=== PATIENT | male | born 1990 | race Caucasian/White ===

== ENCOUNTER → 2020-06-24 06:48 | Outpatient (BNVA) | payer MEDICAID, SELFPAY | PROVIDERS: Visit Provider Surgery | DX: Z76.89 Persons encountering health services in other specified circumstances (principal) ==

== ENCOUNTER → 2020-08-01 08:13 | Outpatient (BNVA) | payer MEDICAID, SELFPAY | PROVIDERS: PCP Internal Medicine; Visit Provider Surgery | DX: Z76.89 Persons encountering health services in other specified circumstances (principal) ==

== ENCOUNTER 2021-12-02 12:10 | Outpatient (REF) | payer OTHER, SELFPAY ==
--- NOTE | ~2021-12-02 | XR_ITS ---
EXAMINATION: XR SHOULDER, RIGHT CLINICAL INFORMATION: Pain right shoulder. COMPARISON: None TECHNIQUE: AP external rotation, Grashey, scapular Y, and axillary views of the right shoulder. FINDINGS: The bones and soft tissues are normal. No fracture. Glenohumeral and acromioclavicular alignment is anatomic with normal joint space. No abnormal soft tissue calcifications. XR/XR shoulder RT min 2V IMPRESSION: Unremarkable right shoulder.
== END 2021-12-02 12:11 | disposition home or self-care (01) ==
LOC: HO.XRAY 12:10
PROVIDERS: Absent Provider Internal Medicine; PCP Internal Medicine; Visit Provider Family Medicine
DX: M25.511 Pain in right shoulder (principal)
CPT/HCPCS: 73030

== ENCOUNTER 2023-10-06 13:27 | Outpatient (REF) | payer MEDICAID, SELFPAY ==
[2023-10-06 17:19] LABS: Estimated Glomerular Filt Rate > 60
[2023-10-07 03:35] LABS: Syphilis Screen Nonreactive (Nonreactive)
[2023-10-07 04:07] LABS: HBS Num1 5.21 mIU/mL (0-7.99); ~Hepatitis B Surface Antibody NONREACTIVE (Nonreactive); ~Hepatitis C Antibody Nonreactive (Nonreactive)
[2023-10-14 10:20] LABS: HIV RNA PCR Qn Copies NOT DETECTED
[2023-10-14 10:21] LABS: HIV RNA PCR Qn Log Copies NOT CALCULATED
== END 2023-10-06 13:28 | disposition home or self-care (01) ==
LOC: HO.HHCL 13:27
PROVIDERS: Visit Provider Internal Medicine
DX: Z11.4 Encounter for screening for human immunodeficiency virus [HIV] (principal); Z11.3 Encounter for screening for infections with a predominantly sexual mode of transmission
CPT/HCPCS: 36415; 82565; 86706; 86780; 86803; 87536

== ENCOUNTER 2023-10-12 13:04 | Outpatient (REF) | payer MEDICAID, SELFPAY | END 2023-10-12 13:05 | disposition home or self-care (01) | LOC: HO.HHCL 13:04 | PROVIDERS: Visit Provider Internal Medicine | DX: Z13.89 Encounter for screening for other disorder (principal) | CPT/HCPCS: 36415; 87536 ==

== ENCOUNTER 2023-10-26 13:26 | Outpatient (REF) | payer MEDICAID, SELFPAY | END 2023-10-26 13:27 | disposition home or self-care (01) | LOC: HO.CHCLNP 13:26 | PROVIDERS: Visit Provider Internal Medicine | DX: Z13.89 Encounter for screening for other disorder (principal) | CPT/HCPCS: 87491; 87591 ==

== ENCOUNTER 2024-11-23 11:41 | Outpatient (REF) | payer MEDICAID, SELFPAY ==
--- OUTSIDE RECORDS SUMMARY | 2024-11-23 13:38 | XMS_ITS | Encounter Summary ---
Author Organization [employer] Address [address] [place] [address] 7 [place] [address] Care Team Providers Care Eyelet Operator Name Role Phone Alejandrina Lentz MD Primary Care Provider [phone]- [phone] Blanco Escobar PharmD Unavailable Unavail able Reason for Visit * Reason Comments Weight Check Hypertension Diabetes Encounter Details Date Type Department Care Team ([facility] Contact Info) Description 11/21/2024 4:00 PM EST Office Visit [facility] MED & PEDS [address] [place] [address] Alejandrina Lentz MD [address] [place] [address] Type 2 diabetes mellitus without complication, without long-term current use of insulin ([facility]) (Primary Dx); Primary hypertension; Encounter for immunization; Dietary counseling; Exercise counseling; Class 3 severe obesity due to excess calories with serious comorbidity and body mass index (BMI) of 40.0 to 44.9 in adult (CMS/HCC) Social History Tobacco Use Types Packs/Day Years Used Date Smoking Tobacco: Never Passive Smoke Exposure: Never Smokeless Tobacco: Never Depression Answer Date Recorded Patient Health Questionnaire-9 Score 4 11/21/2024 Patient Health Questionnaire-9 Score 4 11/21/2024 Last PHQ-9: Questionnaire Data Not on file 0 11/21/2024 Housing Stability Answer Date Recorded What is your housing situation today? I have bel marlow 11/21/[address] you li ve. Do you have problems with any of the following? None of the above 11/21/2024 Food Insecurity Answer Date Recorded Within the past 12 months, y ou worried that your food would run out before you got money to buy more: Never True 11/21/2024 Within the past 12 months,th e food you bought just didn't last and you didn't have enough money to get more: Never True 01/2025 Transportation Answer Date Recorded In the past 12 months, has l ack of transportation kept you from medical appts, meetings, work or from getting things needed for daily living? No 11/21/2024 Utilities Answer Date Recorded In the past 12 months, has t he electric, gas, oil or water company threatened to shut off services in your home? No 11/21/2024 Depression Answer Date Recorded Patient Health Questionnaire-2 Score 2 11/21/2024 Internet Access Answer Date Recorded Internet Access Q1 Yes 11/21/2024 Internet Access Q2 Not on file 11/21/2024 Sex and Gender Information Value Date Recorded Sex Assigned at Male 07/19/2022 10:14 AM EDT Legal Sex Male 10:14 AM EDT Gender Identity Male 07/19/2022 10:14 AM EDT Sexual Orientation Straight 07/19/2022 10 :14 AM EDT documented as of this encounter Last Filed Vital Signs Vital Sign Reading Time Taken Comments Blood Pressure 137/89 11/21/2024 3:48 PM EST Pulse 86 11/21/2024 3:48 PM EST Temperature 36.7 ??C (98 ??F) 11/21/2024 3:48 PM EST Respiratory Rate 20 11/21/2024 3:48 PM EST Oxygen Saturation 97% 11/21/2024 3:48 PM EST Inhaled Oxygen Concentration - - Weight 116 kg (256 lb) 11/21/2024 3:48 PM EST Height 167.6 cm (5' 6 ) 11/21/2024 3:48 PM EST Body Mass Index 41.32 11/21/2024 3:48 PM EST documented in this encounter Progress Notes * Alejandrina eLntz MD - 11/21/2024 4:00 PM EST Subjective Patient ID: Oneal Galindo is a 34 y.o. male who presents for Weight Check, Hypertension, and Diabetes. Hypertension This is a chronic problem. The problem is controlled. Pertinent negatives include no anxiety, blurred vision, chest pain, headaches, malaise/fatigue, neck pain, orthopnea, palpitations, peripheral edema, PND, shortness of breath or sweats. Diabetes He presents for his follow-up diabetic visit. He has type 2 diabetes mellitus. Pertinent negatives for hypoglycemia include no confusion, dizziness, headaches, hunger, mood changes, nervousness/anxiousness, pallor, seizures, sleepiness, speech difficulty, sweats or tremors. Pertinent negatives for diabetes include no blurred vision, no chest pain, no fatigue, no foot paresthesias, no foot ulcerations, no polydipsia, no polyphagia, no polyuria, no visual change, no weakness and no weight loss. Pt is doing overall well. Denies any acute event since his last office visit. He is compliant to his meds. He has made some lifestyle changes. Has stopped drinking sodas and eats less candies. Patient Active Problem List Diagnosis Primary hypertension Type 2 diabetes mellitus without complication, without long-term current use of insulin ([facility]) Current Outpatient Medications on File Prior to Visit Medication Sig Dispense Refill acetaminophen (Tylenol) 325 MG tablet Take 1 tablet by mouth every 4 (four) hours if needed. OTC Alcohol Swabs (Alcohol Prep) pads Use to check blood sugar twice daily 100 each 11 Blood Glucose Monitoring Suppl (Reply.ioStyle [place] Lite) w/Device kit TEST BLOOD SUGAR TWICE DAILY Blood Pressure Monitor kit Use to check blood pressure daily 1 kit 0 buPROPion XL (Wellbutrin XL) 300 MG 24 hr tablet Take 300 mg by mouth in the morning. Do not crush,chew, or split. Descovy 200-25 MG tablet TAKE TABLET EVERY MORNING 30 tablet 2 Descovy 200-25 MG tablet TAKE ONE TABLET EVERY DAY 30 tablet 1 doxycycline (Vibra-Tabs) 100 MG tablet Take 2 tabs within 72 hours after unprotected intercourse. Take with a full glass of water and do not lie down for at least 30 minutes after. 60 tablet 0 emtricitabine-tenofovir AF (Descovy) 200-25 MG tablet Take 1 tablet by mouth in the morning. 30 tablet 2 emtricitabine-tenofovir AF (Descovy) 200-25 MG tablet Take 1 tablet by mouth Once per day. 30 tablet 2 FREESTYLE LITE test strip TEST BLOOD SUGAR TWICE DAILY 100 strip 11 Jardiance 10 MG TAKE ONE TABLET EVERY MORNING 90 tablet 0 Jardiance 25 MG TAKE ONE TABLET EVERY MORNING 90 tablet 1 ketoconazole (NIZOral) 2 % shampoo USE TWICE A WEEK DIRECTED 120 mL 3 Lancets (OneTouch Delica Plus [id number]) [facility] [place] BLOOD SUGAR TWICE DAILY 100 each 11 lisinopril 20 MG tablet TAKE ONE TABLET BY MOUTH EVERY MORNING 30 tablet 11 metFORMIN XR (Glucophage-XR) 500 MG 24 hr tablet TAKE TWO TABLETS TWICE DAILY IN THE MORNING AND EVENING WITH MEALS 120 tablet 11 polyethylene glycol, PEG, 3350 (Miralax) 17 g packet MIX ONE PACKAGE IN 8 OUNCE OF WATER, JUICE, COFFEE OR TEA AND DRINK TWICE DAILY 60 packet 3 propranolol LA (Inderal LA) 60 MG 24 hr capsule Take 1 capsule by mouth in the evening. traZODone (Desyrel) 50 MG tablet Take 0.5-1 tablets by mouth if needed at bedtime. venlafaxine XR (Effexor XR) 75 MG 24 hr capsule Take 1 capsule by mouth in the evening. [DISCONTINUED] dulaglutide (Trulicity) 1.5 MG/0.5ML solution pen-injector Inject 1.5 mg under the skin 1 (one) time per week. 4 each 11 Current Facility-Administered Medications on File Prior to Visit Medication Dose Route Frequency Provider Last Rate Last Admin doxycycline (Vibramycin) capsule 100 mg 100 mg Oral BID Norberto Rosado RN 100 mg at 10/12/23 1300 No Known Allergies Review of Systems Constitutional: Negative for fatigue, malaise/fatigue and weight loss. Eyes: Negative for blurred vision. Respiratory: Negative for shortness of breath. Cardiovascular: Negative for chest pain, palpitations, orthopnea and PND. Endocrine: Negative for polydipsia, polyphagia and polyuria. Musculoskeletal: Negative for neck pain. Skin: Negative for pallor. Neurological: Negative for dizziness, tremors, seizures, speech difficulty, weakness and headaches. Psychiatric/Behavioral: Negative for confusion. The patient is not nervous/anxious. Objective BP 137/89 (BP Location: Left arm, Patient Position: Sitting, BP Cuff Size: Adult) Pulse 86 Temp98 ??F (36.7 ??C) (Oral) Resp 20 Ht 5' 6 (1.676 m) Wt 256 lb (116 kg) SpO2 97% BMI 41.32kg/m?? Physical Exam Constitutional: General: He is not in acute distress. Appearance: Normal appearance. He is normal weight. He is not ill-appearing or diaphoretic. HENT: Head: Normocephalic. Nose: Nose normal. Mouth/Throat: Mouth: Mucous membranes are moist. Comments: Has braces Eyes: Extraocular Movements: Extraocular movements intact. Pupils: Pupils are equal, round, and reactive to light. Cardiovascular: Rate and Rhythm: Normal rate and regular rhythm. Pulses: Dorsalis pedis pulses are 2+ on the right side and 2+ on the left side. Posterior tibial pulses are 2+ on the right side and 2+ on the left side. Heart sounds: Normal heart sounds. No murmur heard. Pulmonary: Effort: Pulmonary effort is normal. Breath sounds: Normal breath sounds. Abdominal: General: Bowel sounds are normal. There is no distension. Palpations: Abdomen is soft. There is no mass. Tenderness: There is no abdominal tenderness. There is no guarding. Musculoskeletal: General: Normal range of motion. Right lower leg: No edema. Left lower leg: No edema. Right foot: Normal range of motion. No deformity, bunion, Charcot foot or prominent metatarsal heads. Left foot: Normal range of motion. No deformity, bunion, Charcot foot or prominent metatarsal heads. Feet: Right foot: Protective Sensation: 7 sites tested. 7 sites sensed. Skin integrity: Skin integrity normal. No ulcer, blister, skin breakdown, erythema, warmth, callus or dry skin. Toenail Condition: Right toenails are normal. Left foot: Protective Sensation: 7 sites tested. 7 sites sensed. Skin integrity: Skin integrity normal. No ulcer, blister, skin breakdown, erythema, warmth, callus or dry skin. Toenail Condition: Left toenails are normal. Skin: Capillary Refill: Capillary refill takes less than 2 seconds. Findings: No rash. Neurological: Mental Status: He is alert and oriented to person, place, and time. Psychiatric: Mood and Affect: Mood normal. Behavior: Behavior normal. Assessment/Plan Diagnoses and all orders for this visit: Type 2 diabetes mellitus without complication, without long-term current use of insulin ([facility]) Comments: Stable Dose of trulicity increased to 3 mg once a week Low carb diet Orders: - POCT Glucose - POCT HGB A1C - CBC auto differential; Future - Comprehensive Metabolic Panel; Future - Lipid Panel, Standard; Future - TSH W/Reflex to FT4; Future - Dulaglutide (Trulicity) 3 MG/0.5ML solution auto-injector; Inject 3 mg under the skin 1 (one) time per week. Primary hypertension Comments: Stable No change Orders: - POCT Glucose - POCT HGB A1C - CBC auto differential; Future - Comprehensive Metabolic Panel; Future - Lipid Panel, Standard; Future - TSH W/Reflex to FT4; Future Encounter for immunization - FLU VACCINE TRIVALENT (Fluarix) 6 mo + Dietary counseling Exercise counseling Class 3 severe obesity due to excess calories with serious comorbidity and body mass index (BMI) of40.0 to 44.9 in adult ([facility]) Dietary Recommendations: Fruits, vegetables, whole grains, protein foods, and fat-free or low-fat dairy products are healthychoices. Eat different types of protein foods in your diet. This can include seafood, lean meats, poultry, beans, peas, lentils, nuts, seeds, soy products, and eggs. Limit foods and beverages higher in added sugars, saturated fat, and sodium. Exercise Recommendations: At least 150 minutes of moderate-intensity physical activity per week, or an equivalent combinationof moderate- and vigorous-intensity activity documented in this encounter Plan of Treatment Upcoming Encounters Date Type Department Care Team (Late st Contact Info) Description 02/25/2025 2:30 PM EDT Office Visit [facility] PEDS [address] [place] [address] Alejandrina Lentz MD [address] [place] [address] Scheduled Orders Name Type Priority Associated Diagnoses Orde r Schedule CBC auto differential Lab Routine Type 2 diabetes mellitus without complication, without long-term current use of insulin ([facility]) Primary hypertension Expected: 11/21/2024 (Approximate), Expires: 11/21/2025 Comprehensive Metabolic Panel Lab Routine Type 2 diabetes mellitus without complication, without long-term current use of insulin ([facility]) Primary hypertension Expected: 11/21/2024 (Approximate), Expires: 11/21/2025 Lipid Panel, Standard Lab Routine Type 2 diabetes mellitus without complication, without long-term current use of insulin ([facility]) Primary hypertension Expected: 11/21/2024 (Approximate), Expires: 11/21/2025 TSH W/Reflex to FT4 Lab Routine Type 2 diabetes mellitus without complication, without long-term current use of insulin ([facility]) Primary hypertension Expected: 11/21/2024 (Approximate), Expires: 11/21/2025 documented as of this encounter Goals Goal Patient Goal Type Associated Problems Recent Progress Patient-Stated? Author Blood Pressure < 140/90 Blood Pressure 137/89(2024 3:48 PM EST) No Blanco Escobar, Soy Hemoglobin A1c < 7 Result Component 7(11/21/2024 4:03 PM EST) No Blanco Escobar PharmD documented as of this encounter Procedures Procedure Name Priority Date/Time Associated Diagnosis Comments POCT GLYCATED HEMOGLOBIN, TOTAL Routine 11/21/2024 4:03 PM EST Type 2 diabetes mellitus without complication, without long-term current use of insulin ([facility]) Primary hypertension POCT GLUCOSE Routine 11/21/2024 4:01 PM EST Type 2 diabetes mellitus without complication, without long-term current use of insulin ([facility]) Primary hypertension documented in this encounter Results * (ABNORMAL) POCT HGB A1C (11/21/2024 4:03 PM EST) Hemoglobin A1C 7.0(A) 4.0 - 6.0 % QC Media Lot # [id number] Lot# Expiration Date , Blood 11/21/2024 4:03 PM EST Alejandrina Lentz MD POINT OF CARE TEST ENTER/ED IT ORDERABLES Final Result * POCT Glucose (11/21/2024 4:01 PM EST) Glucose Blood, POC 161 60 - 200 mg/dL QC Media Lot # [id number] Lot# Expiration Date [id number] Comment:random Blood Capillary blood specimen / Unknown 11/21/2024 4:01 PM EST Alejandrina Lentz MD POINT OF CARE TEST ENTER/ED IT ORDERABLES Final Result documented in this encounter Visit Diagnoses Diagnosis Type 2 diabetes mellitus without complication, without long-term current use of insulin ([facility])- Primary Primary hypertension Unspecified essential hypertension Encounter for immunization Dietary counseling Dietary surveillance and counseling Exercise counseling Class 3 severe obesity due to excess calories with serious comorbidity and body mass index (BMI) of 40.0 to 44.9 in adult ([facility]) documented in this encounter Additional Health Concerns Assessment Noted Time PHQ-9 Depression Total Score: 4 11/22/19 25 4:09 PM EST documented as of this encounter Care Teams Eyelet Operator Relationship Specialty Start Date End Date Alejandrina Lentz MD [address] [place] [address] PCP - General Internal Medicine 10/18/13 Blanco Escobar PharmD [address] [place] [address] Pharmacist Internal Medicine 08/19/22 documented as of this encounter
--- OUTSIDE RECORDS SUMMARY | 2024-11-23 13:38 | XMS_ITS | Encounter Summary ---
Author Organization [employer] [facility] Address [address] [place] [address] [place], [place] [address] Care Team Providers Care Grain Trimmer Name Role Phone Alejandrina Lentz MD Primary Care Provider [phone]- [phone] Blanco Escobar PharmD Unavailable Unavail able Reason for Visit * Reason Comments Med Refill Encounter Details Date Type Department Care Team (Late Contact Info) Description 05/29/2024 Refill [facility] MED & PEDS [address] [place] [address] Alejandrina Lentz MD [address] [place] [address] Type 2 diabetes mellitus with hyperglycemia, without long-term current use of insulin ([facility] Social History Tobacco Use Types Packs/Day Years Used Date Smoking Tobacco: Never Passive Smoke Exposure: Never Smokeless Tobacco: Never Sex and Gender Information Value Date Recorded Sex Assigned at Male 07/19/2022 10:14 AM EDT Legal Sex Male 10:14 AM EDT Gender Identity Male 07/19/2022 10:14 AM EDT Sexual Orientation Straight 07/19/2022 10 :14 AM EDT documented as of this encounter Plan of Treatment Upcoming Encounters Date Type Department Care Team (Late Contact Info) Description 02/25/2025 2:30 PM EDT Office Visit [facility] MED & PEDS [address] [place] [address] Alejandrina Lentz MD [address] [place] [address] documented as of this encounter Goals Goal Patient Goal Type Associated Problems Recent Progress Patient-Stated? Author Blood Pressure < 140/90 Blood Pressure 137/89(2024 3:48 PM EST) No Blanco Escobar PharmD Hemoglobin A1c < 7 Result Component 7(11/21/2024 4:03 PM EST) No Blanco Escobar PharmD documented as of this encounter Visit Diagnoses Diagnosis Type 2 diabetes mellitus with hyperglycemia, without long-term current use of insulin ([facility]) documented in this encounter Care Teams Grain Trimmer Relationship Specialty Start Date End Date Alejandrina Lentz MD [address] [place] [address] PCP - General Internal Medicine 10/18/13 Blanco Escobar PharmD [address] [place] [address] Pharmacist Internal Medicine 08/19/22 documented as of this encounter
--- OUTSIDE RECORDS SUMMARY | 2024-11-23 13:38 | XMS_ITS | Encounter Summary ---
Author Organization [employer] Address [address] [facility] [address] [place] [address] Care Team Providers Care Smash Fixer Name Role Phone Alejandrina Lentz MD Primary Care Provider +1 [phone] Blanco Escobar PharmD Unavailable Unavail able Encounter Details Date Type Department Care Team (Latest Contact Info) Description 11/21/2024 Travel Social History Tobacco Use Types Packs/Day Years [...] Description 02/25/2025 2:30 PM EDT Office Visit [facility] MED & PEDS [address] [place] [address] Alejandrina Lentz MD [address] [place] [address] documented as of this encounter Goals Goal Patient Goal Type Associated Problems Recent Progress Patient-Stated? Author Blood Pressure < 140/90 Blood Pressure 137/89(2024 3:48 PM EST) No Dellogono, Blanco, PharmD Hemoglobin A1c < 7 Result Component 7(11/21/2024 4:03 PM EST) No DellogonoMauriis, PharmD documented as of this encounter Visit Diagnoses Not on filedocumented in this encounter Additional Health Concerns Assessment Noted Time PHQ-9 Depression Total Score: 4 11/22/19 25 4:09 PM EST documented as of this encounter Care Teams Smash Fixer Relationship Specialty Start Date End Date Alejandrina Lentz MD [address] [place] [address] PCP - General Internal Medicine 10/18/13 DellogonoMauriis, PharmD [address] [facility] [place] [address] Pharmacist Internal Medicine 08/19/22 documented as of this encounter
--- OUTSIDE RECORDS SUMMARY | 2024-11-23 13:38 | XMS_ITS | Encounter Summary ---
Author Organization [email or web address] Address [address] [place] [address] 7 [place] [address] Care Team Providers Care Academic Advising Director Name Role Phone Alejandrina Lentz MD Primary Care Provider [phone] Blanco Escobar PharmD Unavailable Unavail able Reason for Visit * Reason Onset Date Comments Appointment Request 11/23/2024 Encounter Details Date Type Department Care Team ([facility] Contact Info) Description 11/23/2024 Telephone [facility] MED & PEDS [address] [place] [address] Alejandrina Lentz MD [address] [place] [address] Appointment Request Social History Tobacco Use Types Packs/Day Years [...] AM EDT documented as of this encounter Miscellaneous Notes * Telephone Encounter - Laisha Perez RN - 11/23/2024 1:30 PM EST TC from pt returned to office to schedule chronic condition follow up per provider request. Appointment scheduled for 02/25/25 at 2:30PM. Instructions given to pt to call office if appointment cannot be kept. Pt verbalized understanding and agreement with plan. documented in this encounter Plan of Treatment Upcoming Encounters Date Type Department Care Team (Late st Contact Info) Description 02/25/2025 2:30 PM EDT Office Visit [facility] MED & PEDS [address] [place] [address] Alejandrina Lentz MD [address] [place] [address] documented as of this encounter Goals Goal Patient Goal Type Associated Problems Recent Progress Patient-Stated? Author Blood Pressure < 140/90 Blood Pressure 137/89(2024 3:48 PM EST) No Blanco Escobar, PharmD Hemoglobin A1c < 7 Result Component 7(11/21/2024 4:03 PM EST) No Blanco Escobar, PharmD documented as of this encounter Visit Diagnoses Not on filedocumented in this encounter Additional Health Concerns Assessment Noted Time PHQ-9 Depression Total Score: 4 11/22/19 25 4:09 PM EST documented as of this encounter Care Teams Academic Advising Director Relationship Specialty Start Date End Date Alejandrina Lentz MD [address] [place] [address] PCP - General Internal Medicine 10/18/13 Blanco Escobar, MoralesD [address] [place] [address] Pharmacist Internal Medicine 08/19/22 documented as of this encounter
--- OUTSIDE RECORDS SUMMARY | 2024-11-23 13:38 | XMS_ITS | Encounter Summary ---
Author Organization [employer] [facility] Address [address] [place] [address] 7 [place] [address] Care Team Providers Care Bed And Breakfast Innkeeper Name Role Phone Alejandrina Lentz MD Primary Care Provider [phone]- [phone] Blanco Escobar PharmD Unavailable Unavail able Reason for Visit * Reason Comments Med Refill Encounter Details Date Type Department Care Team (Late st Contact Info) Description 07/04/2023 Refill [facility] [address] [place] [address] Alejandrina Lentz MD [address] [place] [address] High risk sexual behavior, unspecified type Social History Tobacco Use Types Packs/Day Years [...] encounter Miscellaneous Notes * Telephone Encounter - Shanna Mabry RN - 08/31/2023 11:11 AM EST Pt needs labs first per PrEP navigator, PrEP navigator will call. documented in this encounter Plan of Treatment Upcoming Encounters Date Type Department Care Team (Late Contact Info) Description 02/25/2025 2:30 PM EDT Office Visit [facility] MED & PEDS [address] [place] [address] Alejandrina Lentz MD [address] [place] [address] documented as of this encounter Goals Goal Patient Goal Type Associated Problems Recent Progress Patient-Stated? Author Blood Pressure < 140/90 Blood Pressure 137/89(2024 3:48 PM EST) No Blanco Escobar, PharmD Hemoglobin A1c < 7 Result Component 7(11/21/2024 4:03 PM EST) No Blanco Escobar, PharmD documented as of this encounter Visit Diagnoses Diagnosis High risk sexual behavior, unspecified type documented in this encounter Care Teams Bed And Breakfast Innkeeper Relationship Specialty Start Date End Date Alejandrina Lentz MD [address] [place] [address] PCP - General Internal Medicine 10/18/13 Blanco Escobar, PharmD [address] [place] [address] Pharmacist Internal Medicine 08/19/22 documented as of this encounter
--- OUTSIDE RECORDS SUMMARY | 2024-11-23 13:38 | XMS_ITS | Encounter Summary ---
Author Organization [facility] Address [address] [place] [address] [address] [place] [place] [address] Care Team Providers Care Business Continuity Manager Name Role Phone Alejandrina Lentz MD Primary Care Provider [phone] Blanco Escobar PharmD Unavailable Unavail able Encounter Details Date Type Department Care Team (Late Contact Info) Description 09/14/2022 Telephone [facility] [address] [place] [address] Alejandrina Lentz MD [address] [place] [address] Social History Tobacco Use Types Packs/Day Years Used Date Smoking Tobacco: Never Assessed Sex and Gender Information Value Date Recorded Sex Assigned at Male 07/19/2022 10:14 AM EDT Legal Sex Male 10:14 AM EDT Gender Identity Male 07/19/2022 10:14 AM EDT Sexual Orientation Straight 07/19/2022 10 :14 AM EDT COVID-19 Exposure Response Date Recorded In the last 10 days, have yo u been in contact with someone who was confirmed or suspected to have Coronavirus/COVID-19? No / Unsure 08/27/2022 9:58 AM EST documented as of this encounter Plan of Treatment Upcoming Encounters Date Type Department Care Team (Late Contact Info) Description 02/25/2025 2:30 PM EDT Office Visit [facility] [address] [place] [address] Alejandrina Lentz MD [address] [place], [place] [phone] documented as of this encounter Goals Goal Patient Goal Type Associated Problems Recent Progress Patient-Stated? Author Blood Pressure < 140/90 Blood Pressure 137/89(2024 3:48 PM EST) No Blanco Escobar PharmD Hemoglobin A1c < 7 Result Component 7(11/21/2024 4:03 PM EST) No Blanco Escobar PharmD documented as of this encounter Visit Diagnoses Not on filedocumented in this encounter Care Teams Business Continuity Manager Relationship Specialty Start Date End Date Alejandrina Lentz MD [address] [place] [address] PCP - General Internal Medicine 10/18/13 Blanco Escobar PharmD [address] [place] [address] Pharmacist Internal Medicine 08/19/22 documented as of this encounter
--- OUTSIDE RECORDS SUMMARY | 2024-11-23 13:38 | XMS_ITS | Encounter Summary ---
Author Organization [employer] [facility] Address [address] [place] [address] [facility] [place] [address] Care Team Providers Care Orthotic Aide Name Role Phone Alejandrina Lentz MD Primary Care Provider [phone] Blanco Escobar PharmD Unavailable Unavail able Encounter Details Date Type Department Care Team (Late st Contact Info) Description 10/07/2023 Orders Only [facility] [address] [place] [address] Alejandrina Lentz MD [address] [place] [address] Encounter for HIV pre-exposure prophylaxis (Primary Dx) Social History Tobacco Use Types Packs/Day Years [...] Description 02/25/2025 2:30 PM EDT Office Visit [facility] [address] [place] [address] Alejandrina Lentz MD [address] [place] [address] Scheduled Orders Name Type Priority Associated Diagnoses Orde r Schedule HIV-1/2 Antigen and Antibodies, Fourth Generation, with Reflexes Lab Routine Encounter for HIV pre-exposure prophylaxis Expected: 10/12/2023 (Approximate), Expires: 10/12/2024 documented as of this encounter Goals Goal Patient Goal Type Associated Problems Recent Progress Patient-Stated? Author Blood Pressure < 140/90 Blood Pressure 137/89(2024 3:48 PM EST) No Blanco Escobar, PharmAki Hemoglobin A1c < 7 Result Component 7(11/21/2024 4:03 PM EST) No Blanco Escobar PharmD documented as of this encounter Visit Diagnoses Diagnosis Encounter for HIV pre-exposure prophylaxis- Primary documented in this encounter Care Teams Orthotic Aide Relationship Specialty Start Date End Date Alejandrina Lentz MD [address] [place] [address] PCP - General Internal Medicine 10/18/13 Blanco Escobar PharmD 505 [place] [address] Pharmacist Internal Medicine 08/19/22 documented as of this encounter
--- OUTSIDE RECORDS SUMMARY | 2024-11-23 13:38 | XMS_ITS | Clinical Summary ---
Author Organization [employer] Address [address] [place] [address] 7[place] [address] Care Team Providers Care Veneer Drier Name Role Phone Alejandrina Lentz MD Primary Care Provider [phone] Blanco Escobar PharmD Unavailable Unavail able Allergies No known active allergies Medications Blood Glucose Monitoring Suppl ([employer] [place] Lite) w/Device kit TEST BLOOD SUGAR TWICE DAILY 01/16/20 22 Active venlafaxine XR (Effexor XR) 75 MG 24 hr capsule Take 1 capsule by mouth in the evening. 07/29/20 22 Active propranolol LA (Inderal LA) 60 MG 24 hr capsule Take 1 capsule by mouth in the evening. 07/23/20 22 Active traZODone (Desyrel) 50 MG tablet Take 0.5-1 tablets by mouth if needed at bedtime. 07/23/20 22 Active buPROPion XL (Wellbutrin XL) 300 MG 24 hr tablet Take 300 mg by mouth in the morning. Do not crush, chew, or split. Active acetaminophen (Tylenol) 325 MG tablet Take 1 tablet by mouth every 4 (four) hours if needed. OTC Active Alcohol Swabs (Alcohol Prep) padsIndications: Type 2 diabetes mellitus without complication, without long-term current use of insulin ([facility]) Use to check blood sugar twice daily 100 each 11 08/27/20 22 Active Blood Pressure Monitor kitIndications:P rimary hypertension Use to check blood pressure daily 1 kit 11/05/19 23 Active polyethylene glycol, PEG, 3350 (Miralax) 17 g packet MIX ONE PACKAGE IN 8 OUNCE OF WATER, JUICE, COFFEE OR TEA AND DRINK TWICE DAILY 60 packet 3 03/04/20 23 Active emtricitabine-te nofovir AF (Descovy) 200-25 MG tabletIndication s:High risk sexual behavior, unspecified type Take 1 tablet by mouth in the morning. 30 tablet 2 04/05/20 23 Active Jardiance 10 MG TAKE ONE TABLET EVERY MORNING 90 tablet 04/19/20 23 Active FREESTYLE LITE test strip TEST BLOOD SUGAR TWICE DAILY 100 strip 11 05/05/20 23 Active Lancets (OneTouch Delica Plus [id number]) misc TEST BLOOD SUGAR TWICE DAILY 100 each 11 05/05/20 23 Active lisinopril 20 MG tabletIndication s:Primary hypertension TAKE ONE TABLET BY MOUTH EVERY MORNING 30 tablet 11 11/18/19 24 Active metFORMIN XR (Glucophage-XR) 500 MG 24 hr tabletIndication s:Type 2 diabetes mellitus without complication, without long-term current use of insulin (CMS/HCC) TAKE TWO TABLETS TWICE DAILY IN THE MORNING AND EVENING WITH MEALS 120 tablet 11 11/18/19 24 Active Descovy 200-25 MG tabletIndication s:Encounter for HIV pre-exposure prophylaxis TAKE TABLET EVERY MORNING 30 tablet 2 05/18/20 24 Active emtricitabine-te nofovir AF (Descovy) 200-25 MG tabletIndication s:Encounter for HIV pre-exposure prophylaxis Take 1 tablet by mouth Once per day. 30 tablet 2 05/16/20 24 Active ketoconazole (NIZOral) 2 % shampooIndicatio ns:Seborrheic dermatitis USE TWICE A WEEK DIRECTED 120 mL 3 07/03/20 24 Active Jardiance 25 MGIndications:Ty pe 2 diabetes mellitus with hyperglycemia, without long-term current use of insulin (CMS/HCC) TAKE ONE TABLET EVERY MORNING 90 tablet 1 07/10/20 24 Active Descovy 200-25 MG tabletIndication s:Encounter for HIV pre-exposure prophylaxis TAKE ONE TABLET EVERY DAY 30 tablet 1 10/17/19 25 Active doxycycline (Vibra-Tabs) 100 MG tabletIndication s:High risk sexual behavior, unspecified type Take 2 tabs within 72 hours after unprotected intercourse. Take with a full glass of water and do not lie down for at least 30 minutes after. 60 tablet 10/19/19 25 Active Dulaglutide (Trulicity) 3 MG/0.5ML solution auto-injectorInd ications:Type 2 diabetes mellitus without complication, without long-term current use of insulin ([facility]) Inject 3 mg under the skin 1 (one) time per week. 2 mL 1 11/22/19 25 Active dulaglutide (Trulicity) 1.5 MG/0.5ML solution pen-injectorIndi cations:Type 2 diabetes mellitus with hyperglycemia, without long-term current use of insulin (CMS/HCC) Inject 1.5 mg under the skin 1 (one) time per week. 4 each 02/27/20 24 025 Discontin ued(Dose adjustmen t) Hospital, Clinic, or Other Facility Administered Medication Ordered Dose Route Frequency Start Date End Date Status doxycycline (Vibramycin) capsule 100 mgIndications:Chlamydia 100 mg PO 2 times daily 10/12/2023 Active Active Problems Problem Noted Date Diagnosed Date Type 2 diabetes mellitus wit hout complication, without long-term current use of insulin 11/21/2024 Primary hypertension 03/11/2017 Resolved Problems Problem Noted Date Diagnosed Date Resolved Date Type 2 diabetes mellitus wit h hyperglycemia, without long-term current use of insulin 02/07/2023 08/30/2023 Backache 02/14/2018 08/30/2023 Neck pain 02/14/2018 08/30/2023 Allergic rhinitis 12/30/2011 08/30/2023 Obesity 12/30/2011 08/30/2023 Obstructive sleep apnea syndrome 12/30/2011 08/30/2023 Encounters Date Type Department Care Team Description 11/23/2024 Telephone [facility] [address] [place] [address] Alejandrina Lentz MD Appointment Request 11/21/2024 4:00 PM EST Office Visit [facility] [address] [place] [address] Alejandrina Lentz MD Type 2 diabetes mellitus without complication, without long-term current use of insulin ([facility]) (Primary Dx); Primary hypertension; Encounter for immunization; Dietary counseling; Exercise counseling; Class 3 severe obesity due to excess calories with serious comorbidity and body mass index (BMI) of 40.0 to 44.9 in adult ([facility]) 11/21/2024 Travel 10/19/2024 Orders Only [facility] [address] [place] [address] Leidy Wade ANP High risk sexual behavior, unspecified type (Primary Dx) 10/13/[address] [facility] & PEDS [address] [place] [address] Alejandrina Lentz MD Encounter for HIV pre-exposure prophylaxis from Last 3 Months Immunizations Name Administration Dates Next Due DTP 08/27/1993, 1,05/20/1990,03/19,1989 Hep B, Adolescent or Pediatric 06/05/2001,2000,02/01/2001 Hib (HbOC) 01/17/1991 Influenza Injectable Quadriv alant Preservative Free IIV4 MDCK 07/23/2022 Influenza injectable quadriv alent IIV4 with preservative 06/11/2016,06/05/2015 Influenza injectable quadriv alent preservative free 06/17/2021 Influenza, live, intranasal 07/25/2012 Influenza, seasonal, injecta ble, preservative free 11/21/2024 MMR 02/02/1995,01/17/1991 Meningococcal MCV4P [id number]-135 07/31/2007 OPV 08/27/1993, 0,02/17/1990,12/18 Pneumococcal Conjugate PCV 20 07/23/2022 TD (adult), 2 Lf tetanus tox oid, preservative free, adsorbed 07/25/2012,12/06/2001 Tdap 11/05/2022,07/31/2007 Social History Tobacco Use Types Packs/Day Years Used Date Smoking Tobacco: Never Passive Smoke Exposure: Never Smokeless Tobacco: Never Tobacco Cessation:Counseling Given: Not Answered Depression Answer Date Recorded Patient Health Questionnaire-9 [...] the past 12 months, has t he [employer], gas, oil or water company threatened to [...] Orientation Straight 07/19/2022 10 :14 AM EDT Last Filed Vital Signs Vital Sign Reading [...] Mass Index 41.32 11/21/2024 3:48 PM EST Plan of Treatment Upcoming Encounters Date Type Department Care Team (Late st Contact Info) Description 02/25/2025 2:30 PM EDT Office Visit [facility]ED[facility] [address] [place] [address] Alejandrina Lentz MD [address] [place] [address] Health Maintenance Due Date Last Done Comments Eye Exam 1999 Family Planning (PISQ) 2004 Dental X-Ray: Bitewings 12/06/2018 12/06/19 18, 09/29/2016, 09/29/2016, Additional history exists Dental Oral Exam 04/12/2019 10/12/2018, , 09/29/2016, Additional history exists Dental X-Ray: Full Mouth 09/30/2019 09/29/2016, 12/19 Dental Prophylaxis 11/02/2019 05/01/2019, 1 10/22/2017, 12/05/2017, Additional history exists Diabetes: Urine Protein Screening 01/14/2023 01/14/2022 Lipid Panel 01/14/2023 01/14/2022 COVID-19 Vaccine ( season) 2024 07/15/2021, 11/21/2020, 10/31/2020 Diabetes: Hemoglobin A1C 02/21/2025 025, 02/27/2024, 10/26/2023, Additional history exists Alcohol/Substance Use Screening 11/21/2025 11/21/2024 Depression Screening 11/21/2025 11/21/2024, 11/22/19 Diabetes: Foot Exam 11/21/2025 11/21/2024, 11/21/2024, 11/21/2024, Additional history exists SDOH Screening 11/21/2025 11/21/2024 Tobacco Screening 11/21/2025 11/21/2024 DTaP/Tdap/Td Vaccines (9 - Td or Tdap) 11/05/2032 11/05/2022, 07/25/2012, 07/31/2007, Additional history exists Zoster Vaccines (1 of 2) 2039 RSV Patients and Patients Aged 60 years or older (1 - 1-dose 75+ series) 2064 HIB Vaccines Completed 01/17/1991 IPV Vaccines Completed 08/27/1993, 1989, 02/17/1990, Additional history exists Hepatitis B Vaccines Completed 06/05/2001, 03/03/2001, 02/01/2001 Meningococcal Vaccine Completed 07/31/2007 Pneumococcal Vaccine: Pediatrics (0 to 5 Years) and At-Risk Patients (6 to 49) Years) Completed 07/23/2022 HIV Screening Completed 10/06/2023, 02/07/2023 Hepatitis C Screening Completed 10/06/2023, 023 Influenza Vaccine Completed 11/21/2024, , 06/17/2021, Additional history exists HPV Vaccines Aged Out No longer eligi ble based on patient's age to complete this topic Hepatitis A Vaccines Aged Out No long er eligible based on patient's age to complete this topic RSV under 20 months Aged Out No longe r eligible based on patient's age to complete this topic Rotavirus Vaccines Aged Out No longer eligible based on patient's age to complete this topic Goals Goal Patient Goal Type Associated Problems Recent Progress Patient-Stated? Author Blood Pressure < 140/90 Blood Pressure 137/89(2024 3:48 PM EST) No Blanco Escobar PharmD Hemoglobin A1c < 7 Result Component 7(11/21/2024 4:03 PM EST) No Blanco Escobar PharmD Procedures Procedure Name Priority Date/Time Associated Diagnosis Comments POCT GLYCATED HEMOGLOBIN, TOTAL Routine 11/21/2024 4:03 PM EST Type 2 diabetes mellitus without complication, without long-term current use of insulin (CMS/HCC) Primary hypertension POCT GLUCOSE Routine 11/21/2024 4:01 PM EST Type 2 diabetes mellitus without complication, without long-term current use of insulin (CMS/HCC) Primary hypertension HEPATITIS C AB W/REFL TO HCV RNA, QN, PCR Routine 10/06/2023 1:28 PM EST Screening for STDs (sexually transmitted diseases) HIV 1 RNA, QUANTITATIVE REAL TIME PCR Routine 10/06/2023 1:28 PM EST Screening for STDs (sexually transmitted diseases) ALBUMIN, RANDOM URINE W/CREATININE Routine 01/14/2022 9:45 AM EDT LIPID PANEL, STANDARD Routine 01/14/2022 9:45 AM EDT PROPHYLAXIS - ADULT Routine 05/01/2019 1 2:00 AM EDT PERIODIC ORAL EVALUATION - ESTABLISHED PATIENT Routine 10/12/2018 12:00 AM EST BITEWINGS - 4 RADIOGRAPHIC IMAGES Routine 12/05/2017 12:00 AM EDT INTRAORAL - COMPLETE SERIES OF RADIOGRAPHIC IMAGES Routine 09/29/2016 12:00 AM EST from Last 3 Months or Most Recently Relevant to Health Maintenance Results * (ABNORMAL) POCT HGB A1C (11/21/2024 4:03 PM EST) Pathologist [facility] Hemoglobin A1C 7.0(A) 4.0 - 6.0 % QC Media Lot # [id number] Lot# Expiration Date ,[id number] Blood 11/21/2024 4:03 PM EST Alejandrina Lentz MD POINT OF CARE TEST ENTER/ED IT ORDERABLES Final Result * POCT Glucose (11/21/2024 4:01 PM EST) Pathologist [facility] Glucose Blood, POC 161 60 - 200 mg/dL QC Media Lot # [id number] Lot# Expiration Date [id number] Comment:random Blood Capillary blood specimen / Unknown 11/21/2024 4:01 PM EST Alejandrina Lentz MD POINT OF CARE TEST ENTER/ED IT ORDERABLES Final Result * Hepatitis C Antibody with Reflex to HCV, RNA, Quantitative, Real-Time PCR (10/06/2023 1:28 PM EST) [facility] Hepatitis C Antibody Nonreactive Nonreactive [facility] Comment:Antibodies to HCV no t detected; does not exclude early acuteHCV infection. Blood Venous blood specimen / Unknown 10/06/2023 1:28 PM EST 10/06/2023 4:13 PM EST Alejandrina Lentz MD LAB BLOOD ORDERABLES Final Result [facility] [address] [place] [phone] * HIV-1 RNA, Quantitative, Real-Time PCR (10/06/2023 1:28 PM EST) HIV RNA PCR Qn Copies NOT DETECTED [facility] Comment:HIV-1 RNA QUANTIFICA TION, PL: Not DetectedUNITS: CP/MLREFERENCE RANGE: [NOTDE]HIV-1 RNA was not detected in the specimenResult reported to the [facility].Testing performed by real time PCR utilizing [employer]HIV-1 test. To prevent errors in diagnosis, test resultsshould be interpreted in the context of clinical findingsand other laboratory data. Rare polymorphisms exist thatcould lead to false-negative or false-positive results. Ifresults obtained do not match the clinical findings,additional testing should be considered.Test performed by [facility], [address] [facility] [place], [place] [address]Bjhfcdq performed or reported by [facility], a Service of [facility] [place] [address] Juventino Dumont MD, Strategy Director [facility]# [id number] HIV RNA PCR Qn Log Copies NOT CALCULATED [facility] Comment:HIVQTS: LOG value no t calculatedUNITS: LOGCP/MLTest performed by [facility], [facility] [place] [address]Lpsjkct performed or reported by [facility], a Service of [facility] [place] [address] Juventino Dumont MD, Strategy Director [facility]# [id number] Blood Venous blood specimen / Unknown 10/06/2023 1:28 PM EST 10/06/2023 4:13 PM EST us Alejandrina Lentz MD LAB BLOOD ORDERABLES Edited Result - Final [facility] [address] [place] [address] [phone] * ALBUMIN, RANDOM URINE W/CREATININE (01/14/2022 9:45 AM EDT) Pathologist [facility] Microalbumin Urine 4.2 See Note: mg/dL [facility] Comment: Reference Range: ?? Reference Range Not established Microalb/Creat Ratio 16 <30 mcg/mg creat [facility] Comment: ?? The ADA defines abnormalities in albumin excretion as follows: ?? Albuminuria Category ?Result (mcg/mg creatinine) ?? Normal to Mildly increased ?? <30 Moderately increased ? 30-299 ?? Severely increased ? > OR = 300 ?? The ADA recommends that at least two of three specimens collected within a 3-6 month period be abnormal before considering a patient to be within a diagnostic category. Creatinine, Urine 258 20 - 320 mg/dL [facility] 01/14/2022 9:45 AM EDT us Winsome Rodriguez MD LAB URINE ORDERABLES Final Re sult [facility] [address] * (ABNORMAL) LIPID PANEL, STANDARD (01/14/2022 9:45 AM EDT) Chol/HDLC Ratio 5.4(H) <5.0 (calc) [facility] Cholesterol, Total 177 <200 mg/dL [facility] HDL Cholesterol 33(L) > OR = 40 mg/dL [facility] LDL Cholesterol 118(H) mg/dL (calc) [facility] Comment: Reference range: <100 ?? Desirable range <100 mg/dL for primary prevention; ?? <70 mg/dL for patients with CHD or diabetic patients ?? with > or = 2 CHD risk factors. ?? LDL-C is now calculated using the James ?? calculation, which is a validated novel method providing ?? better accuracy than the Friedewald equation in the ?? estimation of LDL-C. ?? Michael CHEN et al. NIDHI. 2013;310(19): 7334-4748 ?? (http://education.J C Lads/faq/EYD684) Non-HDL Cholesterol 144(H) <130 mg/dL (calc) [facility] Comment: For patients with diabetes plus 1 major ASCVD risk ?? factor, treating to a non-HDL-C goal of <100 mg/dL ?? (LDL-C of <70 mg/dL) is considered a therapeutic ?? option. Triglycerides 148 <150 mg/dL [facility] 01/14/2022 9:45 AM EDT us Winsome Rodriguez MD LAB BLOOD ORDERABLES Final Re sult [facility] [address] [place] [address], from Last 3 Months or Most Recently Relevant to Health Maintenance Insurance [facility] MEDICAID STAND ADULT Care Teams Veneer Drier Relationship Specialty Start Date End Date Alejandrina Lentz MD [address] [place] [address] PCP - General Internal Medicine 10/18/13 Blanco Escobar, MoralesD [address] [place] [address] Pharmacist Internal Medicine 08/19/22
--- OUTSIDE RECORDS SUMMARY | 2024-11-23 13:38 | XMS_ITS | Encounter Summary ---
Author Organization [employer] [facility] Address [address] [place] [address] [address] [address] Care Team Providers Care Van Owner Operator Name Role Phone Alejandrina Lentz MD Primary Care Provider [phone] Blanco Escobar PharmD Unavailable Unavail able Encounter Details Date Type Department Care Team (Late st Contact Info) Description 08/19/2022 Orders Only [facility] [address] [place] [address] Blanco Escobar, PharmD Social History Tobacco Use Types Packs/Day Years [...] Office Visit [facility] [address] [place] [address] Alejandrina Lentz MD [address] [place] [address] documented as of this encounter Visit Diagnoses Not on filedocumented in this encounter Care Teams Van Owner Operator Relationship Specialty Start Date End Date Alejandrina Lentz MD [address] [place] [address] PCP - General Internal Medicine 10/18/13 Blanco Escobar, PharmD [address] [place] [address] Pharmacist Internal Medicine 08/19/22 documented as of this encounter
--- OUTSIDE RECORDS SUMMARY | 2024-11-23 13:38 | XMS_ITS | Encounter Summary ---
Author Organization [employer] Address [address] [place] [address] Care Team Providers Care Data Sciences Director Name Role Phone Alejandrina Lentz MD Primary Care Provider [phone] Blanco Escobar PharmD Unavailable Unavail able Encounter Details Date Type Department Care Team (Latest Contact Info) Description 05/01/2019 Abstract [facility] CONVERSIONS Dental, Provider, DDS Social History Tobacco Use Types Packs/Day Years [...] Description 02/25/2025 2:30 PM EDT Office Visit [facility] [address] [place] [address] Alejandrina Lentz MD [address] [place] [address] documented as of this encounter Visit Diagnoses Not on filedocumented in this encounter Care Teams Data Sciences Director Relationship Specialty Start Date End Date Alejandrina Lentz MD [address] [place] [address] PCP - General Internal Medicine 10/18/13 Blanco Escobar, PharmD [address] [place], [place] [address] [address] Pharmacist Internal Medicine 08/19/22 documented as of this encounter
[2024-11-23 14:19] LABS: MANUAL DIFF FLAG NO
[2024-11-23 14:22] LABS: Basophils Absolute Auto 0.1 X10*3/uL (0.0-0.2); Basophils Percent Auto 0.4 % (0-2); Eosinophils Absolute Auto 0.1 X10*3/uL (0.0-0.4); Eosinophils Percent Auto 0.7 % (0-4); Hematocrit 45.5 % (42.0-52.0); Hemoglobin 15.6 g/dl (14.0-18.0); Imm Gran Abs Auto 0.05 X10*3/uL (0.00-0.03); Imm Gran Pct Auto 0.4 % (0.0-0.4); Lymphocytes Absolute Auto 2.9 X10*3/uL (1.2-4.9); Lymphocytes Percent Auto 24.2 % (20-40); Mean Corpuscular HGB Conc 34.3 g/dl (31.0-36.0); Mean Corpuscular Hemoglobin 30.3 pg (27.0-33.0); Mean Corpuscular Volume 88.3 fL (80.0-98.0); Mean Platelet Volume 9.6 fL (9.4-12.4); Monocytes Absolute Auto 0.6 X10*3/uL (0.1-1.2); Monocytes Percent Auto 4.8 % (2-11); Neutrophils Absolute Auto 8.2 x10*3/uL (2.0-8.3); Neutrophils Percent Auto 69.5 % (45-73); Platelet Count 287 X10*3/uL (160-400); Red Blood Count 5.15 X10*6/uL (4.60-5.80); Red Cell Distribution Width 12.9 % (11.0-16.0); White Blood Count 11.8 X10*3/uL (4.8-10.8)
[2024-11-23 15:00] LABS: Alanine Aminotransferase 20 U/L (0-40); Albumin Level 3.8 g/dL (3.5-5.0); Anion Gap 11 (12-20); Aspartate Amino Transferase 31 U/L (5-37); Bilirubin Total 0.5 mg/dL (0.0-1.0); Blood Urea Nitrogen 10 mg/dL (9-16); Calcium 9.5 mg/dL (8.4-10.2); Carbon Dioxide 27 mmol/L (22-29); Chloride 105 mmol/L (96-108); Cholesterol 165 mg/dL (<200); Estimated Glomerular Filt Rate > 60; Glucose Random 160 mg/dL (60-115); HDL Cholesterol 33 mg/dL (>40); LDL Cholesterol Calculated 103 mg/dL (<100); Potassium 4.1 mmol/L (3.3-5.1); Sodium 139 mmol/L (135-145); Total Protein 7.6 g/dL (6.5-8.0); Triglycerides 148 mg/dL (<150)
[2024-11-23 15:09] LABS: TSH reflex Free T4 0.91 uIU/mL (0.32-4.0)
[2024-11-23 15:50] LABS: Alkaline Phosphatase 96 U/L (39-117)
== END 2024-11-23 11:42 | disposition home or self-care (01) ==
LOC: HO.CHCLDS 11:41
PROVIDERS: Visit Provider Internal Medicine
DX: E11.9 Type 2 diabetes mellitus without complications (principal); I10 Essential (primary) hypertension
CPT/HCPCS: 36415; 80053; 80061; 84443; 85025

== ENCOUNTER 2024-12-29 14:08 | Emergency (ER) | payer MEDICAID, SELFPAY ==
[2024-12-29 14:24] VITALS: BP 149/97; PULSE 72; RESP 16; TEMP 36.6; O2SAT 94
--- NOTE | 2024-12-29 14:24 | ED_ITS ---
HPI - Psych General Chief Complaint: Psychiatric Symptoms Stated Complaint: crisis Time Seen by Provider: 12/29/24 14:35 Source: patient Mode of arrival: ambulatory Limitations: no limitations History of Present Illness ED Provider: CLARA FERRARI PA-C HPI Narrative: 34 year old male with pmhx significant for HTN and DM presents to the ED today for evaluation for worsening anxiety and depression x4 months. Admits to passive SI, stating that he would rather not wake up in the morning. Denies plan. States he feels overwhelmed following the of two family members and a brother who was recently diagnosed with cancer. States he used to follow with a therapist at [facility] but had limited availability. He is waiting to establish care with a new therapist. Denies AH/VH/TH. Denies illicit substance use. Denies etoh consumption. Reports his mother drove him to the ED today. Denies any physical complaints at present. He is requesting medication for his anxiety. Related Data Home Medications ?Medication ?Instructions ?Recorded ?Confirmed dulaglutide 1.5 mg/0.5 mL 1.5 mg subcut QWEEK 12/29/24 12/29/24 subcutaneous pen injector (Trulicity) duloxetine 30 mg capsule,delayed 30 mg PO BID 12/29/24 12/29/24 release empagliflozin 25 mg tablet 25 mg PO QAM 12/29/24 12/29/24 (Jardiance) emtricitabine 200 mg-tenofovir 1 tab PO DAILY 12/29/24 12/29/24 alafenamide fumarate 25 mg tablet (Descovy) propranolol 60 mg capsule,24 60 mg PO BEDTIME 12/29/24 12/29/24 hr,extended release Allergies Allergy/AdvReac Type Severity Reaction Status Date / Time No Known Allergies Allergy Verified 12/29/24 14:27 [No Known Allergies*] Review of Systems 2 Review of Systems: Yes all other systems are reviewed and are negative PMFSH Past Medical History Attestation statement: The following information was validated with the patient. Source: old records reviewed and nursing notes reviewed Surgical History Hx of tonsillectomy Family History Family History Father No problems noted. Mother No problems noted. Brother No problems noted. Sister No problems noted. Sister No problems noted. Social History Social History Alcohol intake: never Advance Directives: No Advance Directives Information Provided: No Physical Exam 2 Vital Signs: Vital Signs: Last Vital Signs Temp 98.6 F 12/29/24 18:32 Pulse 73 12/29/24 18:32 Resp 16 12/29/24 18:32 BP 124/71 12/29/24 18:32 Pulse Ox 97 12/29/24 18:32 O2 Del Method Room Air 12/29/24 18:32 BMI result Body Mass Index 30.0 hypertensive General: Well appearing, in no acute distress. Skin: Warm, dry, intact. No rashes or lesions. Head: Normocephalic, atraumatic. EENT: Hearing is intact b/l. Conjunctiva clear. PERRLA. EOM intact. Moist mucous membranes.? Neck: Supple without LAD Cardiac: Chest wall symmetric. RRR Lungs: Normal respiratory effort without accessory muscle use. CTA bilaterally. Abdomen: Soft, non-tender, non-distended. No rebound tenderness or guarding. Positive BS x4. Back: No midline spinous or paraspinal tenderness. No step off deformity. Ext: Upper and lower extremities atraumatic, without tenderness, deformity, swelling or erythema Neuro: AOx3. Normal speech. CN 2-12 grossly intact. Ambulating with steady gait. Psych: Appropriate mood and affect. Responds appropriately to questions. Course Course Course Narrative: This is a rapid medical exam performed by Stephane Santoyo NP: Additional HPI, ROS, PE not included below will be deferred to primary provider. 12/29/24 14:24 Patient is a 34-year-old male presenting with complaint of anxiety and depression for the past 4 months. Denies suicidal or homicidal ideation but states he can see his thoughts heading in that direction. States he had a therapist at [facility], but had limited availability, is waiting for transfer to a different therapist. Feeling overwhelmed. Plan: med clearance, CARE eval Reevaluation(s) Reevaluation #1: [place] [address], no left shift. No anemia. H&H stable. Chemistry without acute electrolyte abnormality requiring intervention. No JACE. Liver function at baseline. Random glucose 126. Urine without infection. Urine toxicology negative. Ethanol undetectable. Viral swabs negative. > medicated with 0.5 ativan with good effect. > patient is medically cleared at this time. physician observation initiated pending care team evaluation and disposition. 1840 -- CARE team evaluated patient - he does not appear to be a harm to himself or others. He does not have a history of SI. They have set up [facility] follow up outpatient. From CARE team perspective, patient is safe for d/c home. Denying SI. Him and his mother are agreeable and feel this is a safe plan. His mother is at bedside to drive him home. Patient has remained stable throughout ED visit today. Discussed worrisome signs and symptoms and when to return to the ED. All questions answered at this time. Patient is agreeable with disposition and stable for discharge. Time: 18:41 Date: 12/29/24 Provider: SANJEEV Vargas Physician observation ended at 1840. Patient has been cleared for discharge by the CARE team. Will follow up as an outpatient. Medications Administered Discontinued Medications Generic Name Dose Route Start Last Admin Trade Name Freq PRN Reason Stop Dose Admin Lorazepam 0.5 mg 12/29/24 15:13 12/29/24 15:27 Lorazepam 0.5 Mg Tablet PO 12/29/24 15:14 0.5 mg ONCE ONE Administration Medical Decision Making Medical Decision Making [facility] Narrative: 34 year old male with pmhx significant for HTN and DM presents to the ED today for evaluation for worsening anxiety and depression x4 months. hypertensive, vitals otherwise wnl. he is well appearing and in NAD. Differential diagnosis includes anemia, electrolyte abnormality, anxiety, depression, SI, polysubstance abuse Presentation not consistent with acute organic causes to include delirium, dementia or drug induced disorders (acute ingestions or withdrawal; no evidence of toxidrome).? Given the H&P, I suspect this patient is suicidal and will require observation. Will consult care team to evaluate the patient. Will also obtain labs for medical clearance. Plan: labs, EKG, ASA/APAP levels, ETOH level, UDS, care team consultation, reassessment Differential Diagnosis Differential Diagnoses: The differential diagnosis associated with the presentation includes as above. Admission/Observation Consideration of admission/observation: Escalation of care including admission/observation considered Lab Data [facility] Lab Attestation statement: I reviewed the patient's lab results. as above. 12/29/24 15:30 12/29/24 15:30 Labs: Lab Results 12/29/24 12/29/24 Range/Units 15:28 15:30 WBC 15.0 H (4.8-10.8) X10*3/uL RBC 5.67 (4.60-5.80) X10*6/uL Hgb 17.1 (14.0-18.0) g/dl Hct 48.8 (42.0-52.0) % MCV 86.1 (80.0-98.0) fL MCH 30.2 (27.0-33.0) pg MCHC 35.0 (31.0-36.0) g/dl RDW 12.7 (11.0-16.0) % Plt Count 312 (160-400) X10*3/uL MPV 9.3 L (9.4-12.4) fL Immature Gran % (Auto) 0.3 (0.0-0.4) % Neut % (Auto) 70.8 (45-73) % Lymph % (Auto) 23.1 (20-40) % [place] % (Auto) 5.0 (2-11) % Eos % (Auto) 0.3 (0-4) % Baso % (Auto) 0.5 (0-2) % Lymph # (Auto) 3.5 (1.2-4.9) X10*3/uL [place] # (Auto) 0.8 (0.1-1.2) X10*3/uL Eos # (Auto) 0.0 (0.0-0.4) X10*3/uL Baso # (Auto) 0.1 (0.0-0.2) X10*3/uL Abs Immat Gran (auto) 0.04 H (0.00-0.03) X10*3/uL Absolute Neuts (auto) 10.7 H (2.0-8.3) x10*3/uL Absolute Nucleated RBC 0.000 (0.0-0.012) X10*3/uL Nucleated RBC % (auto) 0.0 (0.0-0.2) /100WBC Sodium 138 (135-145) mmol/L Potassium 4.2 (3.3-5.1) mmol/L Chloride 105 (96-108) mmol/L Carbon Dioxide 21 L (22-29) mmol/L Anion Gap 16 (12-20) BUN 13 (9-16) mg/dL Creatinine 0.72 (0.5-1.4) mg/dL Estim Creat Clear Calc 136.2 Estimated GFR > 60 Random Glucose 126 H (60-115) mg/dL Calcium 9.6 (8.4-10.2) mg/dL Total Bilirubin 0.5 (0.0-1.0) mg/dL AST 29 (5-37) U/L ALT 19 (0-40) U/L Alkaline Phosphatase 90 (39-117) U/L Total Protein 8.2 H (6.5-8.0) g/dL Albumin 4.1 (3.5-5.0) g/dL Urine Color Yellow Urine Appearance Clear Urine pH 5.5 (5.0-9.0) Ur Specific [place] >= 1.030 H (1.005-1.025) Urine Protein Negative (Neg-Trace) mg/dL Urine Glucose (UA) >=1000 H (Negative) mg/dL Urine Ketones Trace (Negative) mg/dL Urine Blood Negative (Negative) Urine Nitrite Negative (Negative) Ur Leukocyte Esterase Negative (Negative) Urine RBC 0-2 (0-2) /HPF Urine WBC 0-5 (0-5) /HPF Ur Squamous Epith Cells 6-10 (0-2) /HPF Urine Bacteria Trace (None Seen) Hyaline Casts 0-2 (0-2) /LPF Urine Opiates Screen Not Detected (Not Detect) Ur Buprenorphine Scrn Not Detected (Not Detect) ng/mL Ur Oxycodone Screen Not Detected (Not Detect) ng/mL Urine Methadone Screen Not Detected (Not Detect) ng/mL Urine Fentanyl Screen Not Detected (Not Detect) Ur Barbiturates Screen Not Detected (Not Detect) Ur Phencyclidine Scrn Not Detected (Not Detect) Ur Amphetamines Screen Not Detected (Not Detect) U Benzodiazepines Scrn Not Detected (Not Detect) Urine Cocaine Screen Not Detected (Not Detect) U Marijuana (THC) Screen Not Detected (Not Detect) Ethyl Alcohol < 10 mg/dL Influenza Type A (PCR) NEGATIVE (Negative) Influenza Type B (PCR) NEGATIVE (Negative) RSV RNA Qual (PCR) NEGATIVE (Negative) SARS-CoV-2 RNA (RT-PCR) NEGATIVE (Negative) Social Determinants Patient?s care significantly limited by Social Determinants of Health including: Other Social Determinant of Health Critical Care Time Critical Care Time Critical Care Time: No Discharge Plan Discharge Clinical Impression: Depression, Suicidal ideation, Anxiety Patient Disposition: Home, Self-Care Instructions: Help Prevent Suicide (ED), Anxiety (ED) Additional Instructions: You were seen in our Emergency Department today for worsening anxiety/ depression. It is important after your visit that you follow up with either your behavioral health provider or a primary care doctor within 7 days.? You were evaluated by our CARE team and have follow up with [facility] outpatient. You may also follow up with [facility] for a therapist. [address] [place] [address] [phone] The National Suicide and Crisis Lifeline can be reached 7 days a week 24 hours a day.? Call 988 to speak with someone.? Return for any worsening symptoms or concerns such as thoughts of self harm or harm to others. Please call 911 if you feel your mental health is worsening.? Prescriptions: No Action propranolol 60 mg capsule,extended release 24 hr 60 mg PO BEDTIME duloxetine 30 mg capsule,delayed release(DR/EC) 30 mg PO BID Jardiance 25 mg tablet 25 mg PO QAM Trulicity 1.5 mg/0.5 mL pen injector 1.5 mg subcut QWEEK Patient Comments: hasn't taken in over 1 month Descovy 200-25 mg tablet 1 tab PO DAILY Patient Comments: pt states he hasnt taken in about 1 month Interventions: Miller-Suicide Risk Severity Scale Last Done: 12/29/24 15:00 ED Discharge Assessment Last Done: 12/29/24 18:32 Discharge Date/Time: 12/29/24 18:36 Print Language: Malagasy
--- OUTSIDE RECORDS SUMMARY | 2024-12-29 14:43 | XMS_ITS | Encounter Summary ---
Author Organization [facility] Address [address] [place] [address] [address] [place] [address] Care Team Providers Care Embossing Press Operator Apprentice Name Role Phone Alejandrina Lentz MD Primary Care Provider [phone] Blanco Escobar PharmD Unavailable Unavail able Encounter Details Date Type Department Care Team (Late Contact Info) Description 10/07/2023 Orders Only [facility] MED & PEDS [address] [place] [address] Alejandrina Lentz MD [address] [place] [address] Encounter for HIV pre-exposure prophylaxis (Primary Dx) [...] 2:30 PM EDT Office Visit [facility] [address] [place] [address] Alejandrina Lentz MD [address] [place] [address] Scheduled Orders Name Type Priority Associated Diagnoses [...] Primary documented in this encounter Care Teams Embossing Press Operator Apprentice Relationship Specialty Start Date End Date Alejandrina Lentz MD [address] [place] [address] PCP - General Internal Medicine 10/18/13 Blanco Escobar PharmD [address] [place] [address] Pharmacist Internal Medicine 08/19/22 documented as of this encounter
--- OUTSIDE RECORDS SUMMARY | 2024-12-29 14:43 | XMS_ITS | Encounter Summary ---
Author Organization [facility] Address [address] [place] [address] [facility] [place] [address] Care Team Providers Care First Aid Director Name Role Phone Alejandrina Lentz MD Primary Care Provider [phone] Blanco Escobar PharmD Unavailable Unavail able Encounter Details Date Type Department Care Team ([facility] Contact Info) Description 09/14/2022 Telephone [facility] MED & PEDS [address] [place] [address] Alejandrina Lentz MD [address] [place] [address] Social History Tobacco Use Types Packs/Day Years [...] Upcoming Encounters Date Type Department Care Team ([facility] Contact Info) Description 02/25/2025 2:30 PM EDT Office Visit [facility] MED & PEDS [address] [place], [place] [phone] Alejandrina Lentz MD [address] [place], [place] [id number] documented as of this encounter Goals Goal Patient Goal Type Associated Problems Recent Progress Patient-Stated? Author Blood Pressure < 140/90 Blood Pressure 137/89(2024 3:48 PM EST) No Blanco Escobar, Soy Hemoglobin A1c < 7 Result Component 7(11/21/2024 4:03 PM EST) No Blanco Escobar PharmD documented as of this encounter Visit Diagnoses Not on filedocumented in this encounter Care Teams First Aid Director Relationship Specialty Start Date End Date Alejandrina Lentz MD [address] [place] [address] PCP - General Internal Medicine 10/18/13 Blanco Escobar PharmD [address] [place] [address] Pharmacist Internal Medicine 08/19/22 documented as of this encounter
--- OUTSIDE RECORDS SUMMARY | 2024-12-29 14:43 | XMS_ITS | Encounter Summary ---
Author Organization [email or web address] Address [address] [facility] 7 [place] [address] Care Team Providers Care Flight Dynamicist Name Role Phone Alejandrina Lentz MD Primary Care Provider [phone] Blanco Escobar PharmD Unavailable Unavail able Encounter Details Date Type Department Care Team ([facility] st Contact Info) Description 11/26/2024 Orders Only [facility] MEDICINE [address] [place] [address] Alejandrina Lentz MD [address] [place] [address] Other elevated white blood cell (WBC) count (Primary Dx) Social History Tobacco Use Types [...] Upcoming Encounters Date Type Department Care Team ([facility] st Contact Info) Description 02/25/2025 2:30 PM EDT Office Visit [facility] MED & PEDS [address] [place] [address] Alejandrina Lentz MD [address] [place] [address] Scheduled Orders Name Type Priority Associated Diagnoses Orde r Schedule CBC auto differential Lab Routine Other elevated white blood cell (WBC) count Expected: 11/26/2024 (Approximate), Expires: 11/26/2025 documented as of this encounter Goals Goal Patient Goal Type Associated Problems Recent Progress Patient-Stated? Author Blood Pressure < 140/90 Blood Pressure 137/89(2024 3:48 PM EST) No Dellogono, Blanco, PharmD Hemoglobin A1c < 7 Result Component 7(11/21/2024 4:03 PM EST) No Dellogono, Blanco, PharmD documented as of this encounter Visit Diagnoses Diagnosis Other elevated white blood cell (WBC) count- Primary documented in this encounter Additional Health Concerns Assessment Noted Time PHQ-9 Depression Total Score: 4 11/22/19 25 4:09 PM EST documented as of this encounter Care Teams Flight Dynamicist Relationship Specialty Start Date End Date Alejandrina Lentz MD [address] [place] [address] PCP - General Internal Medicine 10/18/13 Blanco Escobar, MoralesD [address] [place], [place] [id number] Pharmacist Internal Medicine 08/19/22 documented as of this encounter
--- OUTSIDE RECORDS SUMMARY | 2024-12-29 14:43 | XMS_ITS | Encounter Summary ---
Author Organization [facility] Address [address] [place] [address] [address] [address] Care Team Providers Care Treating Inspector Name Role Phone Alejandrina Lentz MD Primary Care Provider [phone]- [phone] Blanco Escobar PharmD Unavailable Unavail able Encounter Details Date Type Department Care Team (Late Contact Info) Description 08/19/2022 Orders Only [facility] MED & PEDS [address] [place] [address] Blanco Escobar, PharmD Social History Tobacco Use [...] Upcoming Encounters Date Type Department Care Team ([facility] Contact Info) Description 02/25/2025 2:30 PM EDT Office Visit [facility] MED & PEDS [address] [place] [address] Alejandrina Lentz MD [address] [place] [address] documented as of this encounter Visit Diagnoses Not on filedocumented in this encounter Care Teams Treating Inspector Relationship Specialty Start Date End Date Alejandrina Lentz MD [address] [place] [address] PCP - General Internal Medicine 10/18/13 Blanco Escobar, PharmD [address] [place] [address] Pharmacist Internal Medicine 08/19/22 documented as of this encounter
--- OUTSIDE RECORDS SUMMARY | 2024-12-29 14:43 | XMS_ITS | Encounter Summary ---
Author Organization [employer] Address [address] [facility] 7 [place] [address] Care Team Providers Care Software Sales Manager Name Role Phone Alejandrina Lentz MD Primary Care Provider [phone] lBanco Escobar PharmD Unavailable Unavail able Reason for Visit * Reason Onset Date Comments Nurse Triage 12/26/2024 Encounter Details Date Type Department Care Team ([facility] st Contact Info) Description 12/26/2024 Telephone [facility] MEDICINE [address] [place] [address] Alejandrina Lentz MD [address] [place] [address] Nurse Triage Social History Tobacco Use Types Packs/Day Years Used Date Smoking Tobacco: Never Passive Smoke Exposure: Never Smokeless Tobacco: Never Depression Answer Date Recorded Patient Health Questionnaire-9 Score 18 12/27/2024 Patient Health Questionnaire-9 Score 18 12/27/2024 Last PHQ-9: Questionnaire Data Not on file 0 12/27/2024 Housing Stability Answer Date Recorded What is [...] Answer Date Recorded Patient Health Questionnaire-2 Score 6 12/27/2024 Internet Access Answer Date Recorded Internet Access [...] encounter Miscellaneous Notes * Telephone Encounter - Rachna Clark RN - 12/26/2024 12:49 PM EDT called pt to triage, spoke to pt. pt states since September, worsening of anxiety and depression symptoms. pt states sees a therapist and was prescribed depression medication which he was not able to tolerate. pt denies SI/HI/self harm at this time. pt states difficulty concentrating, over thinking everything, family changes, difficulty sleeping. given TC appt with [facility] provider tomorrow at 1:15, 30minutes. advised home care: rest, fluids, good nutrition, relaxation activities, and call back as needed. pt has scheduled appt with PCP 02/25 for other follow up and is advised to keep that appt as scheduled. pt understands and agrees with plan. insurance verified. Multiple (2) protocols were used on this call. Disposition for Call: See in Office or Video Visit within 3 Days Protocol Used: Anxiety and Panic Attack (Adult) Protocol-Based Disposition: See in Office or Video Visit within 3 Days Video visit offer not recorded Positive Triage Question: * Patient wants to be seen * All higher-acuity triage questions were negative Care Advice Discussed: * Note to Triager - Anxiety Symptoms * Reassurance and Education - Anxiety * Anxiety - Healthy Lifestyle Tips * Avoid Caffeine * Avoid Triggers of Anxiety * Stress Reduction * Reasons To Call Back - Anxiety or panic attacks continue - You feel like harming yourself - You become worse Protocol Used: Depression (Adult) Protocol-Based Disposition: See in Office or Video Visit within 3 Days Video visit offer not recorded Positive Triage Question: * Patient wants to be seen * All higher-acuity triage questions were negative Care Advice Discussed: * Note to Triager - Depression * Depression - Symptoms * Depression - Causes * Depression - Tips for Healthy Living * Depression - Stay Active * Reasons To Call Back - Sadness or depression symptoms persist over 2 weeks - You want to talk with a counselor - You feel like harming yourself - You become worse * Telephone Encounter - Keron Rainey - 12/26/2024 11:25 AM EDT Symptom: Anxiety or Panic Attack Outcome: Schedule an urgent appointment (within 4 hours) or talk to a nurse or provider soon Reason: Anxiety keeps from normal daily activities (such as school or work) The caller accepted this outcome. Contact pt at [phone] documented in this encounter Plan of Treatment Upcoming Encounters Date Type Department Care Team ([facility] st Contact Info) Description 02/25/2025 2:30 PM EDT Office Visit [facility] MED & PEDS [address] [place] [address] Alejandrina Lentz MD [address] [place] [address] documented as of this encounter Goals Goal [...] documented as of this encounter Care Teams Software Sales Manager Relationship Specialty Start Date End Date Alejandrina Lentz MD [address] [facility] [place] [address] PCP - General Internal Medicine 10/18/13 Blanco Escobar, MoralesD [address] [place] [address] Pharmacist Internal Medicine 08/19/22 documented as of this encounter
--- OUTSIDE RECORDS SUMMARY | 2024-12-29 14:43 | XMS_ITS | Encounter Summary ---
Author Organization [facility] Address [address] [place] [address] Care Team Providers Care Cable Assembler And Swager Name Role Phone Alejandrina Lentz MD Primary Care Provider [phone]- [phone] Blanco Escobar PharmD Unavailable Unavail able Encounter Details Date Type Department Care Team (Latest Contact Info) Description 05/01/2019 Abstract [facility] CONVERSIONS Dental, Provider, DDS Social History Tobacco [...] Upcoming Encounters Date Type Department Care Team ([facility] st Contact Info) Description 02/25/2025 2:30 PM EDT Office Visit [facility] MED & PEDS [address] [place] [address] Alejandrina Lentz MD [address] [place] [address] documented as of this encounter Visit Diagnoses Not on filedocumented in this encounter Care Teams Cable Assembler And Swager Relationship Specialty Start Date End Date Alejandrina Lentz MD [address] [place] [address] PCP - General Internal Medicine 10/18/13 Blanco Escobar, PharmD [address] [place] [address] Pharmacist Internal Medicine 08/19/22 documented as of this encounter
--- OUTSIDE RECORDS SUMMARY | 2024-12-29 14:43 | XMS_ITS | Encounter Summary ---
Author Organization [employer] Address [address] [place] [address] [facility] [place] [address] Care Team Providers Care Communication Spec Name Role Phone Alejandrina Lentz MD Primary Care Provider [phone] Blanco Escobar PharmD Unavailable Unavail able Reason for Referral * Consultation (Routine) - Closed Specialty Diagnoses / Procedures Referred By Contac t Referred To Contact Behavioral Health Diagnoses Anxiety and depression Michael Stephen MD [address] [place] [address] Phone: tel: fax: Referral ID Status Reason Start Date Expiration Date V isits Requested Visits Authorized [id number] Closed Specialty Services Required 12/27/2024 12/27/2025 1 1 Encounter Details Date Type Department Care Team ([facility] st Contact Info) Description 12/27/2024 1:15 PM EDT Telemedicine [facility] & PEDS [address] [place] [address] Michael Stephen MD [address] [place] [address] Anxiety and depression (Primary Dx) Social History Tobacco Use Types [...] AM EDT documented as of this encounter Progress Notes * Michael Hodges MD - 12/27/2024 1:15 PM EDT Subjective Patient ID: Oneal Galindo is a 34 y.o. male who presents for No chief complaint on file.. Depression Visit Type: follow-up Patient presents with the following symptoms: decreased concentration, excessive worry, feelings ofhopelessness, nervousness/anxiety and restlessness. Patient is not experiencing: suicidal ideas, suicidal planning and thoughts of . Review of Systems Psychiatric/Behavioral: Positive for decreased concentration and depression. Negative for suicidal ideas. The patient is nervous/anxious. Objective Physical Exam Neurological: General: No focal deficit present. Mental Status: He is oriented to person, place, and time. Psychiatric: Mood and Affect: Mood normal. Behavior: Behavior normal. Assessment/Plan Problem List Items Addressed This Visit None Visit Diagnoses Anxiety and depression - Primary Patient lost follow up with therapist, will refer to , also he referred not taking any of the antidepressants prescribed by his psych, will prescribe cymbalta, he has crisis phone number in case ofemergency, told to follow [facility]. documented in this encounter Plan of Treatment Upcoming Encounters Date Type Department Care Team (Late st Contact Info) Description 02/25/2025 2:30 PM EDT Office Visit [facility] MED & PEDS [address] [place] [address] Alejandrina Lentz MD [address] [place] [address] Scheduled Referrals Name Type Priority Associated Diagnoses Order Schedule Referral to Behavioral Health Outpatient Referral Routine Anxiety and depression Expected: 12/27/2024 (Approximate), Expires: 12/27/2025 documented as of this encounter Goals Goal Patient Goal Type Associated Problems Recent Progress Patient-Stated? Author Blood Pressure < 140/90 Blood Pressure 137/89(2024 3:48 PM EST) No Blanco Escobar, PharmD Hemoglobin A1c < 7 Result Component 7(11/21/2024 4:03 PM EST) No Blanco Escobar, PharmD documented as of this encounter Visit Diagnoses Diagnosis Anxiety and depression- Primary documented in this encounter Additional Health Concerns Assessment Noted Time PHQ-9 Depression Total Score: 18 025 12:59 PM EDT documented as of this encounter Care Teams Communication Spec Relationship Specialty Start Date End Date Alejandrina Lentz MD [address] [place] [address] PCP - General Internal Medicine 10/18/13 Blanco Escobar, PharmD [address] [place] [address] Pharmacist Internal Medicine 08/19/22 documented as of this encounter
--- OUTSIDE RECORDS SUMMARY | 2024-12-29 14:43 | XMS_ITS | Encounter Summary ---
Author Organization [employer] [facility] Address [address] [place] [address] [place] [address] Care Team Providers Care Solar Crew Member Name Role Phone Alejandrina Lentz MD Primary Care Provider [phone] Blanco Escobar PharmD Unavailable Unavail able Reason for Visit * Reason Comments Med Refill Encounter Details Date Type Department Care Team ([facility] Contact Info) Description 05/29/2024 Refill [facility] MED & PEDS [address] [place] [address] Alejandrina Lentz MD [address] [place] [address] Type 2 diabetes mellitus with hyperglycemia, without long-term current use of insulin ([facility]) Social History Tobacco Use Types Packs/Day Years [...] Upcoming Encounters Date Type Department Care Team ([facility] Contact Info) Description 02/25/2025 2:30 PM EDT Office Visit [facility] MED & PEDS [address] [place] [address] Alejandrina Lentz MD [address] [place] [address] documented as of this encounter Goals Goal [...] hyperglycemia, without long-term current use of insulin ([facility]) documented in this encounter Care Teams Solar Crew Member Relationship Specialty Start Date End Date Alejandrina Lentz MD [address] [place] [address] PCP - General Internal Medicine 10/18/13 Blanco Escobar PharmD [address] [place] [address] Pharmacist Internal Medicine 08/19/22 documented as of this encounter
--- OUTSIDE RECORDS SUMMARY | 2024-12-29 14:43 | XMS_ITS | Encounter Summary ---
Author Organization [employer] Address [address] [facility] 7t [place] [address] Care Team Providers Care Supervisor Cytogenetic Laboratory Name Role Phone Alejandrina Lentz MD Primary Care Provider [phone] Blanco Escobar PharmD Unavailable Unavail able Encounter Details Date Type Department Care Team (Latest Contact Info) Description 12/27/2024 Travel Social History Tobacco Use Types Packs/Day [...] 2:30 PM EDT Office Visit [facility] MED & PEDS [address] [facility] [place] [address] Alejandrina Lentz MD [address] [place] [address] documented as of this encounter Goals Goal Patient Goal Type Associated Problems Recent Progress Patient-Stated? Author Blood Pressure < 140/90 Blood Pressure 137/89(2024 3:48 PM EST) No DellogonoMauriis, PharmD Hemoglobin A1c < 7 Result Component 7(11/21/2024 4:03 PM EST) No DellogBlanco tyler, PharmD documented as of this encounter Visit Diagnoses Not on filedocumented in this encounter Additional Health Concerns Assessment Noted Time PHQ-9 Depression Total Score: 18 025 12:59 PM EDT documented as of this encounter Care Teams Supervisor Cytogenetic Laboratory Relationship Specialty Start Date End Date Alejandrina Lentz MD [address] [place] [address] PCP - General Internal Medicine 10/18/13 DellogBlanco tyler, PharmD [address] [place] [address] Pharmacist Internal Medicine 08/19/22 documented as of this encounter
--- OUTSIDE RECORDS SUMMARY | 2024-12-29 14:43 | XMS_ITS | Clinical Summary ---
Author Organization [employer] Address [address] [place] [address] 7t [place] [address] Care Team Providers Care Polystyrene Molding Machine Tender Name Role Phone Alejandrina Lentz MD Primary Care Provider [phone] Blanco Escobar PharmD Unavailable Unavail able Allergies No known active allergies Medications Blood Glucose Monitoring Suppl ([employer] [place] Lite) w/Device kit TEST BLOOD SUGAR TWICE [...] needed. OTC Active Alcohol Swabs (Alcohol Prep) padsIndications :Type 2 diabetes mellitus without complication, without long-term current use of insulin ([facility]) Use to check blood sugar twice daily 100 each 11 08/27/20 22 Active Blood Pressure Monitor kitIndications: Primary hypertension Use to check blood pressure daily 1 kit 11/05/19 23 Active polyethylene glycol, PEG, 3350 (Miralax) 17 g packet MIX ONE PACKAGE IN 8 OUNCE OF WATER, JUICE, COFFEE OR TEA AND DRINK TWICE DAILY 60 packet 3 03/04/20 23 Active emtricitabine-t enofovir AF (Descovy) 200-25 MG tabletIndicatio ns:High risk sexual behavior, unspecified type Take 1 tablet by mouth in the morning. 30 tablet 2 04/05/20 23 Active Jardiance 10 MG TAKE ONE TABLET EVERY MORNING 90 tablet 04/19/20 23 Active FREESTYLE LITE test strip TEST BLOOD SUGAR TWICE DAILY 100 strip 11 05/05/20 23 Active Lancets (OneTouch Delica Plus [id number]) misc TEST BLOOD SUGAR TWICE DAILY 100 each 11 05/05/20 23 Active Descovy 200-25 MG tabletIndicatio ns:Encounter for HIV pre-exposure prophylaxis TAKE TABLET EVERY MORNING 30 tablet 2 05/18/20 24 Active emtricitabine-t enofovir AF (Descovy) 200-25 MG tabletIndicatio ns:Encounter for HIV pre-exposure prophylaxis Take 1 tablet by mouth Once per day. 30 tablet 2 05/16/20 24 Active ketoconazole (NIZOral) 2 % shampooIndicati ons:Seborrheic dermatitis USE TWICE A WEEK DIRECTED 120 mL 3 07/03/20 24 Active Jardiance 25 MGIndications:T ype 2 diabetes mellitus with hyperglycemia, without long-term current use of insulin (CMS/HCC) TAKE ONE TABLET EVERY MORNING 90 tablet 1 07/10/20 24 Active Descovy 200-25 MG tabletIndicatio ns:Encounter for HIV pre-exposure prophylaxis TAKE ONE TABLET EVERY DAY 30 tablet 1 10/17/19 25 Active doxycycline (Vibra-Tabs) 100 MG tabletIndicatio ns:High risk sexual behavior, unspecified type Take 2 tabs within 72 hours after unprotected intercourse. Take with a full glass of water and do not lie down for at least 30 minutes after. 60 tablet 10/19/19 25 Active Dulaglutide (Trulicity) 3 MG/0.5ML solution auto-injectorIn dications:Type 2 diabetes mellitus without complication, without long-term current use of insulin (CMS/HCC) Inject 3 mg under the skin 1 (one) time per week. 2 mL 1 11/22/19 25 Active lisinopril 20 MG tabletIndicatio ns:Primary hypertension TAKE ONE TABLET EVERY MORNING 30 tablet 11 12/14/19 25 Active metFORMIN XR (Glucophage-XR) 500 MG 24 hr tabletIndicatio ns:Type 2 diabetes mellitus without complication, without long-term current use of insulin (CMS/HCC) TAKE TWO TABLETS TWICE DAILY IN THE MORNING AND EVENING WITH MEALS 120 tablet 12/14/19 25 Active DULoxetine (Cymbalta) [address] capsule Take 1 capsule (30 mg) by mouth 2 times daily. Do not crush or chew. 60 capsule 12/28/19 25 026 Active lisinopril 20 MG tabletIndicatio ns:Primary hypertension TAKE ONE TABLET BY MOUTH EVERY MORNING 30 tablet 11/18/19 24 025 Discontinued metFORMIN XR (Glucophage-XR) 500 MG 24 hr tabletIndicatio ns:Type 2 diabetes mellitus without complication, without long-term current use of insulin (CMS/HCC) TAKE TWO TABLETS TWICE DAILY IN THE MORNING AND EVENING WITH MEALS 120 tablet 11/18/19 24 025 Discontinued Hospital, Clinic, or Other Facility Administered Medication [...] Encounters Date Type Department Care Team Description 12/27/2024 1:15 PM EDT Telemedicine [facility] MED & PEDS [address] [place], [place] [phone] Michael Stephen MD Anxiety and depression (Primary Dx) 12/27/2024 Travel 12/26/2024 Telephone [facility] [address] [place] [address] Alejandrina Lentz MD Nurse Triage 12/12/2024 Refill [facility] & PEDS [address] [place] [address] Alejandrina Lentz MD Primary hypertension; Type 2 diabetes mellitus without complication, without long-term current use of insulin (CMS/HCC) 11/30/2024 Population Health Risk Score [facility] () Department [address] [place] [phone] Provider, Population Health Generic 11/26/2024 Orders Only [facility] [address] [place] [address] Alejandrina Lentz MD Other elevated white blood cell (WBC) count (Primary Dx) 11/23/2024 Telephone [facility] [address] [place] [address] Alejandrina Lentz MD Appointment Request 11/21/2024 4:00 PM EST Office Visit [facility] PED[facility] [address] [place] [address] Alejandrina Lentz MD Type 2 diabetes mellitus without complication, without long-term current use of insulin ([facility]) (Primary Dx); Primary hypertension; Encounter for immunization; Dietary counseling; Exercise counseling; Class 3 severe obesity due to excess calories with serious comorbidity and body mass index (BMI) of 40.0 to 44.9 in adult (CMS/HCC) 11/21/2024 Travel 10/19/2024 Orders Only [facility] [address] [place] [address] Leidy Wade ANP High risk sexual behavior, unspecified type (Primary Dx) 10/13/2024 Refill [facility] [address] [place] [address] Alejandrina Lentz MD Encounter for HIV pre-exposure [...] 11/21/2024 MMR 02/02/1995,01/17/1991 Meningococcal MCV4P ACYW-135 07/31/2007 OPV, Trivalent 08/27/1993, 0,02/17/1990,12/18 Pneumococcal Conjugate PCV 20 07/23/2022 [...] Description 02/25/2025 2:30 PM EDT Office Visit [facility] [address] [place] [address] Alejandrina Lentz MD [address] [place] [address] Health Maintenance Due Date Last Done Comments Eye Exam 1999 Family Planning (PISQ) 2004 Dental X-Ray: Bitewings 12/06/2018 12/06/19 18, 09/29/2016, 09/29/2016, Additional history exists Dental Oral Exam 04/12/2019 10/12/2018, , 09/29/2016, Additional history exists Dental X-Ray: Full Mouth 09/30/2019 09/29/2016, 12/19 Dental Prophylaxis 11/02/2019 05/01/2019, 1 10/22/2017, 12/05/2017, Additional history exists Diabetes: Urine Protein Screening 01/14/2023 01/14/2022 COVID-19 Vaccine (4 - 2024-25 season) 2024 07/15/2021, 11/21/2020, 10/31/2020 Diabetes: Hemoglobin A1C 02/21/2025 025, 02/27/2024, 10/26/2023, Additional history exists Depression Monitoring 06/28/2025 12/27/2024, 025 Alcohol/Substance Use Screening 11/21/2025 11/21/2024 Diabetes: Foot Exam 11/21/2025 11/21/2024, 11/21/2024, 11/21/2024, Additional history exists SDOH Screening 11/21/2025 11/21/2024 Tobacco Screening 11/21/2025 11/21/2024 Lipid Panel 11/23/2025 11/23/2024, 01/14/2022 Depression Screening 12/27/2025 12/27/2024, 12/28/19 25 DTaP/Tdap/Td Vaccines (9 - Td or Tdap) 11/05/2032 11/05/2022, 07/25/2012, 07/31/2007, Additional history exists Zoster Vaccines (1 of 2) 2039 RSV Patients and Patients Aged 60 years or older (1 - 1-dose 75+ series) 2064 HIB Vaccines Completed 01/17/1991 IPV Vaccines Completed 08/27/1993, 0709/1989, 02/17/1990, Additional history exists Hepatitis B Vaccines [...] Procedure Name Priority Date/Time Associated Diagnosis Comments TSH W/REFLEX TO FT4 Routine 11/23/2024 1 1:42 AM EST Type 2 diabetes mellitus without complication, without long-term current use of insulin (CMS/HCC) Primary hypertension LIPID PANEL, STANDARD Routine 11/23/2024 11:42 AM EST Type 2 diabetes mellitus without complication, without long-term current use of insulin (CMS/HCC) Primary hypertension COMPREHENSIVE METABOLIC PANEL Routine 11/23/2024 11:42 AM EST Type 2 diabetes mellitus without complication, without long-term current use of insulin (CMS/HCC) Primary hypertension CBC WITH AUTO DIFFERENTIAL Routine 11/23/2024 11:42 AM EST Type 2 diabetes mellitus without complication, without long-term current use of insulin (CMS/HCC) Primary hypertension POCT GLYCATED HEMOGLOBIN, TOTAL Routine 11/21/2024 4:03 [...] URINE W/CREATININE Routine 01/14/2022 9:45 AM EDT PROPHYLAXIS - ADULT Routine 05/01/2019 1 2:00 AM EDT PERIODIC ORAL EVALUATION - ESTABLISHED PATIENT Routine 10/12/2018 12:00 AM EST BITEWINGS - 4 RADIOGRAPHIC IMAGES Routine 12/05/2017 12:00 AM EDT INTRAORAL - COMPLETE SERIES OF RADIOGRAPHIC IMAGES Routine 09/29/2016 12:00 AM EST from Last 3 Months or Most Recently Relevant to Health Maintenance Results * TSH W/Reflex to FT4 (11/23/2024 11:42 AM EST) TSH reflex Free T4 0.91 0.32 - 4.0 uIU/mL [facility] Blood Venous blood specimen / Unknown 11/23/2024 11:42 AM EST 11/23/2024 2:13 PM EST Alejandrina Lentz MD LAB BLOOD ORDERABLES Final Result [facility] [address] [place] [address] [phone] * (ABNORMAL) CBC auto differential (11/23/2024 11:42 AM EST) White Blood Count 11.8(H) 4.8 - 10.8 X10*3/uL [facility] Red Blood Count 5.15 4.60 - 5.80 X10*6/uL [facility] Hemoglobin 15.6 14.0 - 18.0 g/dl [facility] Hematocrit 45.5 42.0 - 52.0 % [facility] Mean Corpuscular Volume 88.3 80.0 - 98.0 fL [facility] Mean Corpuscular Hemoglobin 30.3 27.0 - 33.0 pg [facility] Mean Corpuscular HGB Conc 34.3 31.0 - 36.0 g/dl [facility] Red Cell Distribution Width 12.9 11.0 - 16.0 % [facility] Platelet Count 287 160 - 400 X10*3/uL [facility] Mean Platelet Volume 9.6 9.4 - 12.4 fL [facility] Neutrophils Percent Auto 69.5 45 - 73 % [facility] Imm Gran Pct Auto 0.4 0.0 - 0.4 % [facility] Lymphocytes Percent Auto 24.2 20 - 40 % [facility] Monocytes Percent Auto 4.8 2 - 11 % [facility] Eosinophils Percent Auto 0.7 0 - 4 % [facility] Basophils Percent Auto 0.4 0 - 2 % [facility] NRBC Pct Auto 0.0 0.0 - 0.2 /100WBC [facility] Neutrophils Absolute Auto 8.2 2.0 - 8.3 x10*3/uL [facility] Imm Gran Abs Auto 0.05(H) 0.00 - 0.03 X10*3/uL [facility] Lymphocytes Absolute Auto 2.9 1.2 - 4.9 X10*3/uL [facility] Monocytes Absolute Auto 0.6 0.1 - 1.2 X10*3/uL [facility] Eosinophils Absolute Auto 0.1 0.0 - 0.4 X10*3/uL [facility] Basophils Absolute Auto 0.1 0.0 - 0.2 X10*3/uL [facility] NRBC Abs Auto 0.000 0.0 - 0.012 X10*3/uL [facility] Blood Venous blood specimen / Unknown 11/23/2024 11:42 AM EST 11/23/2024 2:13 PM EST us Alejandrina Lentz MD LAB BLOOD ORDERABLES Final Result [facility] [address] [place] [address] [phone] * (ABNORMAL) Lipid Panel, Standard (11/23/2024 11:42 AM EST) Triglycerides 148 <150 mg/dL [facility] Comment:Desirable Triglyceri de: less than 150 mg/dLBorderline High Triglyceride 150-199 mg/dLHigh Triglyceride: 200-499 mg/dLVery High Triglyceride: greater than or equal to 5OO mg/dL Cholesterol 165 <200 mg/dL [facility] Comment:Desirable Cholestero l: less than 200 mg/dLBorderline High Cholesterol: 200-239 mg/dLHigh Cholesterol: greater than 239 mg/dL LDL Cholesterol Calculated 103(H) <100 mg/dL [facility] Comment:Desirable LDL: less than 100 mg/dLNear Optimal/Above Optimal LDL: 110- 129 mg/dLBorderline High LDL: 130-159 mg/dLHigh LDL: 160-189 mg/dLVery High LDL: greater than or equal to 190 mg/dL HDL Cholesterol 33(L) >40 mg/dL [facility] Comment:Desirable HDL: great er than 40 mg/dL Note: This HDL assay may give artificially low results in patients with liver disease. Blood Venous blood specimen / Unknown 11/23/2024 11:42 AM EST 11/23/2024 2:13 PM EST us Alejandrina Lentz MD LAB BLOOD ORDERABLES Final Result [facility] [address] [place] [phone] * (ABNORMAL) Comprehensive Metabolic Panel (11/23/2024 11:42 AM EST) Sodium 139 135 - 145 mmol/L [facility] Potassium 4.1 3.3 - 5.1 mmol/L [facility] Chloride 105 96 - 108 mmol/L [facility] Carbon Dioxide 27 22 - 29 mmol/L [facility] Anion Gap 11(L) 12 - 20 [facility] Urea Nitrogen (BUN) 10 9 - 16 mg/dL [facility] Creatinine, Serum 0.83 0.5 - 1.4 mg/dL [facility] Estimated Glomerular Filt Rate >60 [facility] Comment:Chronic Kidney Disea se: Estimated GFR < 60 mL/min/1.17w3Oivohc Kidney Disease: Estimated GFR < 15 mL/min/1.73m2 Glucose 160(H) 60 - 115 mg/dL [facility] Calcium 9.5 8.4 - 10.2 mg/dL [facility] Bilirubin, Total 0.5 0.0 - 1.0 mg/dL [facility] Aspartate Amino Transferase 31 5 - 37 U/L [facility] Alanine Aminotransferase 20 0 - 40 U/L [facility] Total Protein 7.6 6.5 - 8.0 g/dL [facility] Albumin Level 3.8 3.5 - 5.0 g/dL [facility] Alkaline Phosphatase 96 39 - 117 U/L [facility] Blood Venous blood specimen / Unknown 11/23/2024 11:42 AM EST 11/23/2024 2:13 PM EST Alejandrina Lentz MD LAB BLOOD ORDERABLES Final Result Performing Organization Address City/State/[facility] Co de Phone Number [facility] [address] [place] [phone] * (ABNORMAL) POCT HGB A1C (11/21/2024 4:03 PM EST) Hemoglobin A1C 7.0(A) 4.0 - 6.0 % QC Media Lot # [id number] Lot# Expiration Date ,026 Blood 11/21/2024 4:03 PM EST Alejandrina Lentz MD POINT OF CARE TEST ENTER/ED IT ORDERABLES Final Result * POCT Glucose (11/21/2024 4:01 PM EST) Glucose Blood, POC 161 60 - 200 mg/dL QC Media Lot # [id number] Lot# Expiration Date 007,025 Comment:random Blood Capillary blood specimen / Unknown 11/21/2024 4:01 PM EST Alejandrina Lentz MD POINT OF CARE TEST ENTER/ED IT ORDERABLES Final Result * Hepatitis C Antibody with Reflex to HCV, RNA, Quantitative, Real-Time PCR (10/06/2023 1:28 PM EST) Pathologist [facility] Hepatitis C Antibody Nonreactive Nonreactive [facility] Comment:Antibodies to HCV no t detected; does not exclude early acuteHCV infection. Blood Venous blood specimen / Unknown 10/06/2023 1:28 PM EST 10/06/2023 4:13 PM EST Alejandrina Lentz MD LAB BLOOD ORDERABLES Final Result [facility] [address] [place] [phone] * HIV-1 RNA, Quantitative, Real-Time PCR (10/06/2023 1:28 PM EST) Pathologist [facility] HIV RNA PCR Qn Copies NOT DETECTED [facility] Comment:HIV-1 RNA QUANTIFICA TION, PL: Not DetectedUNITS: CP/MLREFERENCE RANGE: [NOTDE]HIV-1 RNA was not detected in the specimenResult reported to the [facility].Testing performed by real time PCR utilizing MIKAYLA 6800HIV-1 test. To prevent errors in diagnosis, test resultsshould be interpreted in the context of clinical findingsand other laboratory data. Rare polymorphisms exist thatcould lead to false-negative or false-positive results. Ifresults obtained do not match the clinical findings,additional testing should be considered.Test performed by [facility], [address] [place] [address] performed or reported by [facility], a Service of [facility],[address] [place] [address] Juventino Dumont MD, Rag Baler [facility]# [id number] HIV RNA PCR Qn Log Copies NOT CALCULATED [facility] Comment:HIVQTS: LOG value no t calculatedUNITS: LOGCP/MLTest performed by [employer], [address] [place] [address]Sjpe[employer]g performed or reported by [facility], a Service of [facility],[address] [place] [address] Juventino Dumont MD, Rag Baler [facility]# [id number] Blood Venous blood specimen / Unknown 10/06/2023 1:28 PM EST 10/06/2023 4:13 PM EST us Alejandrina Lentz MD LAB BLOOD ORDERABLES Edited Result - Final Performing Organization Address [facility]/ZIP Co de Phone Number [facility] [address] [place] [address] [phone] * ALBUMIN, RANDOM URINE W/CREATININE (01/14/2022 9:45 AM EDT) Microalbumin Urine 4.2 See Note: mg/dL [facility] [...] MD LAB URINE ORDERABLES Final Re sult [facility] [address] from Last 3 Months or Most Recently Relevant to Health Maintenance Insurance [facility] C3 DENTAL-[facility] MEDICAID STAND ADULT Care Teams Polystyrene Molding Machine Tender Relationship Specialty Start Date End Date Alejandrina Lentz MD [address] [place] [address] PCP - General Internal Medicine 10/18/13 Blanco Escobar PharmD [address] [place] [address] Pharmacist Internal Medicine 08/19/22
[2024-12-29] MEDS: LORazepam 0.5 MG TABLET PO (15:27)
[2024-12-29 15:34] LABS: MANUAL DIFF FLAG NO
[2024-12-29 15:35] LABS: Basophils Absolute Auto 0.1 X10*3/uL (0.0-0.2); Basophils Percent Auto 0.5 % (0-2); Eosinophils Percent Auto 0.3 % (0-4); Hematocrit 48.8 % (42.0-52.0); Hemoglobin 17.1 g/dl (14.0-18.0); Imm Gran Abs Auto 0.04 X10*3/uL (0.00-0.03); Imm Gran Pct Auto 0.3 % (0.0-0.4); Lymphocytes Absolute Auto 3.5 X10*3/uL (1.2-4.9); Lymphocytes Percent Auto 23.1 % (20-40); Mean Corpuscular Hemoglobin 30.2 pg (27.0-33.0); Mean Corpuscular Volume 86.1 fL (80.0-98.0); Mean Platelet Volume 9.3 fL (9.4-12.4); Monocytes Absolute Auto 0.8 X10*3/uL (0.1-1.2); Neutrophils Absolute Auto 10.7 x10*3/uL (2.0-8.3); Neutrophils Percent Auto 70.8 % (45-73); Platelet Count 312 X10*3/uL (160-400); Red Blood Count 5.67 X10*6/uL (4.60-5.80); Red Cell Distribution Width 12.7 % (11.0-16.0)
[2024-12-29 15:36] LABS: Appearance Urine Clear; Color Urine Yellow; Glucose Urine UA >=1000 mg/dL (Negative); Leukocyte Esterase Urine Negative (Negative); Nitrite Urine Negative (Negative); PH 5.5 (5.0-9.0); Specific Gravity - Urine >= 1.030 (1.005-1.025); UMIC TRIGGER UACC YES; Urine Blood Negative (Negative); Urine Ketones Trace mg/dL (Negative); Urine Protein Negative (Neg-Trace)
[2024-12-29 15:45] LABS: Amphetamine Screen Urine Not Detected (Not Detect); Barbiturates, Urine Not Detected (Not Detect); Benzodiazepines Screen Urine Not Detected (Not Detect); Buprenorphine Scr Not Detected (Not Detect); Cannabinoid Screen Urine Not Detected (Not Detect); Cocaine Screen Urine Not Detected (Not Detect); Fentanyl, urine Not Detected (Not Detect); Methadone Screen, Urine Not Detected (Not Detect); Opiate Screen Urine Not Detected (Not Detect); Oxycodone Screen Urine Not Detected (Not Detect); Phencyclidine Screen Urine Not Detected (Not Detect)
[2024-12-29 15:46] LABS: Bacteria Urine Trace (None Seen); Hyaline Casts Urine 0-2 /LPF (0-2); RBC Urine 0-2 /HPF (0-2); WBC Urine 0-5 /HPF (0-5)
[2024-12-29 16:18] LABS: Influenza A PCR NEGATIVE (Negative); Influenza B PCR NEGATIVE (Negative); Resp Syncy Virus RNA Qual PCR NEGATIVE (Negative); SARS COV2 PCR INHOUSE NEGATIVE (Negative)
[2024-12-29 16:40] LABS: Alkaline Phosphatase 90 U/L (39-117)
[2024-12-29 16:52] LABS: Anion Gap 16 (12-20)
[2024-12-29 16:59] LABS: Alanine Aminotransferase 19 U/L (0-40); Albumin Level 4.1 g/dL (3.5-5.0); Aspartate Amino Transferase 29 U/L (5-37); Bilirubin Total 0.5 mg/dL (0.0-1.0); Blood Urea Nitrogen 13 mg/dL (9-16); Calcium 9.6 mg/dL (8.4-10.2); Carbon Dioxide 21 mmol/L (22-29); Chloride 105 mmol/L (96-108); Creatinine Clr Calc Pharmacy 136.2; Estimated Glomerular Filt Rate > 60; Ethanol < 10 mg/dL; Glucose Random 126 mg/dL (60-115); Potassium 4.2 mmol/L (3.3-5.1); Sodium 138 mmol/L (135-145); Total Protein 8.2 g/dL (6.5-8.0)
--- NOTE | 2024-12-29 17:20 | PC.NURSE ---
pt states that some of his medications he has stopped taking. he states he just started a new medication for depression (Duloxetine) and that he hasn't been taking any of the other medication previously prescribed for depression. He denies taking venlafaxine, trazodone and bupropion saying that he recently switched so no longer takes those ones. pt also states that since this recent bout of depression he has not been taking his Descovy. Pt reports that he currently takes Duloxetine, Propranolol and Jardiance. He states he has not taken his Trulicity pen in about 1 month but is unsure when he last used it
[2024-12-29 18:32] VITALS: BP 124/71; PULSE 73; RESP 16; TEMP 37; O2SAT 97
== END 2024-12-29 18:36 | disposition home or self-care (01) ==
PROVIDERS: Registered Nurse Emergency; Emergency Provider Emergency Medicine; PCP Internal Medicine
DX: R45.851 Suicidal ideations (principal); F33.1 Major depressive disorder, recurrent, moderate; F41.9 Anxiety disorder, unspecified; I10 Essential (primary) hypertension; E11.9 Type 2 diabetes mellitus without complications; Z51.81 Encounter for therapeutic drug level monitoring; Z03.818 Encounter for observation for suspected exposure to other biological agents ruled out; Z79.899 Other long term (current) drug therapy
CPT/HCPCS: 0241U; 80053; 80307; 81001; 85025; 99284; 99285; S9485